=== PATIENT | female | born 1985 | race Caucasian/White ===

== ENCOUNTER → 2021-11-22 16:03 | Outpatient (BNVA) | payer BC, SELFPAY | PROVIDERS: PCP Internal Medicine; Visit Provider Psychiatry & Neurology Neurology | DX: G43.109 Migraine with aura, not intractable, without status migrainosus (principal) | CPT/HCPCS: 64615; J0585 ==

== ENCOUNTER → 2022-03-02 11:15 | Outpatient (BNVA) | payer BC, SELFPAY | PROVIDERS: Visit Provider Psychiatry & Neurology Neurology | DX: G43.109 Migraine with aura, not intractable, without status migrainosus (principal) | CPT/HCPCS: 64615; J0585 ==

== ENCOUNTER → 2022-06-19 11:30 | Outpatient (BNVA) | payer BC, SELFPAY | PROVIDERS: PCP Internal Medicine; Visit Provider Psychiatry & Neurology Neurology | DX: G43.109 Migraine with aura, not intractable, without status migrainosus (principal) | CPT/HCPCS: 64615; J0585 ==

== ENCOUNTER → 2022-09-27 08:05 | Outpatient (BNVA) | payer BC, SELFPAY | PROVIDERS: PCP Internal Medicine; Visit Provider Psychiatry & Neurology Neurology | DX: G43.119 Migraine with aura, intractable, without status migrainosus (principal) | CPT/HCPCS: 64615; J0585 ==

== ENCOUNTER → 2023-01-04 07:37 | Outpatient (BNVA) | payer BC, SELFPAY | PROVIDERS: PCP Internal Medicine; Visit Provider Psychiatry & Neurology Neurology | DX: G43.109 Migraine with aura, not intractable, without status migrainosus (principal); G43.119 Migraine with aura, intractable, without status migrainosus | CPT/HCPCS: 64615; J0585 ==

== ENCOUNTER 2023-04-16 08:31 | Outpatient (AMB) | payer BC, SELFPAY ==
--- NOTE | 2023-04-16 08:35 | A.OFFVIS_ITS ---
Intake Vital Signs 04/16/23 08:37 Weight 177 lb BP 124/64 Blood Pressure Location Lt brachial Position Sitting Pulse 70 Pulse Source Pulse Oximeter Pulse Oximetry (%) 98 Oxygen Delivery Method Room Air Intake Visit Reasons: Botox(pharm)-CONFIRMED Intake Note: BotoxInjectio Designer And Patternmaker Required: No Allergies Sulfa (Sulfonamide Antibiotics) Allergy (Mild, Verified 04/16/23 08:36) unknown sulfamethoxazole [From Bactrim] Allergy (Mild, Verified 04/16/23 08:36) unknown trimethoprim [From Bactrim] Allergy (Mild, Verified 04/16/23 08:36) unknown Medication List - Last Reconciled 04/16/23 by Melinda Robledo MD adalimumab (Humira(CF) Pen) 40 mg subcut Q2W lorazepam 1 mg PO DAILY PRN onabotulinumtoxinA (Botox) to be injected by physician in the scalp muscles for migraines q 3mths; quetiapine 25 mg PO BEDTIME sertraline 100 mg PO QAM HPI HPI Comments History of Present Illness Details ? 38y/o female comes for treatment of migraines with botox. SHe started having daily migraines in 2012 with poor response to multiple treatment trials . she was started on Botox and since then her headache days have decreased from 20days a month to 0-2 days a month. her headaches respond to excedrin and she is able to function without any interruptions at work. ??? Most frequent reported adverse reactions following injection of botox for chronic migraine include neck pain (9%), headache(5%), eyelid ptosis(4%), migraine(4%), muscular weakness(4%), musculuskeletal stiffness(4%), bronchitis(3%), injection site pain (3%), musculoskeletal pain(3%), myalgia(3%), facial ??? Botulinum toxin typeA 200units Lot no [id number] expiration Oct 2025 was d iluted with 4 cc of normal saline . ??? Muscles injected- ??? Frontalis 4 sites ??? Procerus 1 site ??? Pot Fireman- 2 sites ??? Temporalis- 8 sites ??? Occipitalis- 6 sites ??? Cervical paraspinals- 4 sites ??? Trapezius- 6 sites- 10 units each ??? 5 units each in 31 site ??? Total use- 185units ??? 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 Physical Exam Vital Signs: Last Vital Signs Pulse 70 04/16/23 08:37 BP 124/64 04/16/23 08:37 Pulse Ox 98 04/16/23 08:37 Oxygen Delivery Method Room Air 04/16/23 08:37 Const General: cooperative and healthy appearing Orientation/consciousness: patient oriented x3 HEENT Head: Yes normal to inspection and Yes normocephalic Neuro General: patient oriented x3, gait normal, tone normal and moves all extremities Office Procedures Botulinum toxin Injection 98834 - Migraine Procedure code (CPT) selection complete Office Meds onabotulinumtoxinA Performing Provider: Melinda Robledo MD Administered by: Melinda Robledo MD on 04/16/23 09:01 Dose Route Admin Location Lot Number Expiration Date NDC Utility Operator 185 unit subcut [id number] 10/24/25 4535-0191-56 ALLERGAN/BOTOX Comments: see hpi Assessment & Plan Assessment & Plan (1) Chronic migraine without aura: Code(s): G43.709 - Chronic migraine without aura, not intractable, without status migrainosus Plan Patient tolerated the procedure well she will call with any side effects. Orders: Orders AMB Botulinum toxin Injection - Patient Supplied Today G43.709 - Chronic migraine without aura, not intractable, without status migrainosus Coding Level of Care Code Est Pt Level 1 (92390) Diagnoses Chronic migraine without aura G43.709 CPT Codes Botox Injection - Botox 3: 27265 - Migraine ([id number])
[2023-04-16 08:37] VITALS: BP 124/64; PULSE 70; O2SAT 98
== END 2023-04-16 08:56 | disposition home or self-care (01) ==
PROVIDERS: Visit Provider Psychiatry & Neurology Neurology
DX: G43.709 Chronic migraine without aura, not intractable, without status migrainosus (principal)
CPT/HCPCS: 64615; 99211

== ENCOUNTER → 2023-04-16 08:31 | Outpatient (BNVA) | payer BC, SELFPAY | PROVIDERS: Visit Provider Psychiatry & Neurology Neurology | DX: G43.709 Chronic migraine without aura, not intractable, without status migrainosus (principal) | CPT/HCPCS: 64615; J0585 ==

== ENCOUNTER 2023-07-17 08:06 | Outpatient (AMB) | payer BC, SELFPAY ==
--- NOTE | 2023-07-17 08:11 | A.OFFVIS_ITS ---
Intake Vital Signs 07/17/23 08:12 Height 5 ft 8 in Weight 174 lb 8 oz BMI 26.5 BP 108/66 Blood Pressure Location Lt brachial Position Sitting Respiration 16 Pulse 68 Pulse Source Pulse Oximeter Pulse Oximetry (%) 96 Oxygen Delivery Method Room Air Intake Visit Reasons: Botox(pharm)-confirmed Intake Note: Pt presents to office for Botox injections Allergies Sulfa (Sulfonamide Antibiotics) Allergy (Mild, Verified 07/17/23 08:11) unknown sulfamethoxazole [From Bactrim] Allergy (Mild, Verified 07/17/23 08:11) unknown trimethoprim [From Bactrim] Allergy (Mild, Verified 07/17/23 08:11) unknown Medication List - Last Reconciled 07/17/23 by Melinda Robledo MD etanercept (Enbrel) 25 mg subcut QWEEK lorazepam 1 mg PO DAILY PRN onabotulinumtoxinA (Botox) to be injected by physician in the scalp muscles for migraines q 3mths; quetiapine 25 mg PO BEDTIME sertraline 100 mg PO QAM HPI HPI Comments History of Present Illness Details ? 38y/o female comes for treatment of migraines with botox. SHe started having daily migraines in 2012 with poor response to multiple treatment trials . she was started on Botox and since then her headache days have decreased from 20days a month to 0-2 days a month. her headaches respond to excedrin and she is able to function without any interruptions at work. ??? Most frequent reported adverse reactions following injection of botox for ch ronic migraine include neck pain (9%), headache(5%), eyelid ptosis(4%), migraine(4%), muscular weakness(4%), musculuskeletal stiffness(4%), bronchitis(3%), injection site pain (3%), musculoskeletal pain(3%), myalgia(3%), facial ??? Botulinum toxin typeA 200units Lot no [id number] expiration November 2025 was diluted with 4 cc of normal saline . ??? Muscles injected- ??? Frontalis 4 sites ??? Procerus 1 site ??? Tapping Machine Operator- 2 sites ??? Temporalis- 8 sites ??? Occipitalis- 6 sites ??? Cervical paraspinals- 4 sites ??? Trapezius- 6 sites- 10 units each ??? 5 units each in 31 site ??? Total use- 185units ??? 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 Physical Exam Vital Signs: Last Vital Signs Pulse 68 07/17/23 08:12 Resp 16 07/17/23 08:12 BP 108/66 07/17/23 08:12 Pulse Ox 96 07/17/23 08:12 Oxygen Delivery Method Room Air 07/17/23 08:12 BMI result Body Mass Index 26.5 Const General: cooperative and healthy appearing Orientation/consciousness: patient oriented x3 HEENT Head: Yes normal to inspection and Yes normocephalic Neuro General: patient oriented x3, gait normal, tone normal and moves all extremities Office Procedures Botulinum toxin Injection 04359 - Migraine Procedure code (CPT) selection complete Office Meds onabotulinumtoxinA 200 unit solution for injection Performing Provider: Melinda Robledo MD Performing Location[place] [facility] [place] [facility] Administered by: Melinda Robledo MD on 07/17/23 10:44 Dose Route Admin Location Dispensed Lot Number Expiration Date [facility] Environmental Remediation Specialist 185 unit subcut 200 units [id number] 11/21/25 1052-0216-02 ALLERGAN/BOTOX Comments: see HPI Assessment & Plan Assessment & Plan (1) Chronic migraine without aura: Code(s): G43.709 - Chronic migraine without aura, not intractable, without status migrainosus Plan Patient tolerated the procedure well she will call with any side effects. Orders: Orders PT Evaluation and Treatment Today M54.2 - Cervicalgia AMB Botulinum toxin Injection - Patient Supplied Today G43.709 - Chronic migraine without aura, not intractable, without status migrainosus Coding Level of Care Code Est Pt Level 1 (33784) Diagnoses Chronic migraine without aura G43.709 CPT Codes Botox Injection - Botox 3: 73852 - Migraine ([id number])
[2023-07-17 08:12] VITALS: BP 108/66; PULSE 68; RESP 16; O2SAT 96; BMI 26.5
== END 2023-07-17 08:37 | disposition home or self-care (01) ==
PROVIDERS: PCP Internal Medicine; Visit Provider Psychiatry & Neurology Neurology
DX: G43.709 Chronic migraine without aura, not intractable, without status migrainosus (principal)
CPT/HCPCS: 64615

== ENCOUNTER → 2023-07-17 08:06 | Outpatient (BNVA) | payer BC, SELFPAY | PROVIDERS: PCP Internal Medicine; Visit Provider Psychiatry & Neurology Neurology | DX: G43.709 Chronic migraine without aura, not intractable, without status migrainosus (principal) | CPT/HCPCS: 64615; 99211; J0585 ==

== ENCOUNTER 2023-10-21 08:06 | Outpatient (AMB) | payer BC, SELFPAY ==
--- NOTE | 2023-10-21 08:10 | A.OFFVIS_ITS ---
Intake Vital Signs 10/21/23 08:11 Height 5 ft 8 in Weight 185 lb 4 oz BMI 28.2 BP 116/70 Blood Pressure Location Rt brachial Position Sitting Respiration 16 Pulse 72 Pulse Source Pulse Oximeter Pulse Oximetry (%) 97 Oxygen Delivery Method Room Air Intake Visit Reasons: Botox(pharm) Confirmed Intake Note: Pt presents to the office for Botox injections. Refinish Technician Required: No Allergies Sulfa (Sulfonamide Antibiotics) Allergy (Mild, Verified 10/21/23 08:11) unknown sulfamethoxazole [From Bactrim] Allergy (Mild, Verified 10/21/23 08:11) unknown trimethoprim [From Bactrim] Allergy (Mild, Verified 10/21/23 08:11) unknown Medication List - Last Reconciled 10/21/23 by Melinda Robledo MD lorazepam 1 mg PO DAILY PRN onabotulinumtoxinA (Botox) to be injected by physician in the scalp muscles for migraines q 3mths; quetiapine 25 mg PO BEDTIME sertraline 100 mg PO QAM HPI HPI Comments History of Present Illness Details ? 38y/o female comes for treatment of migraines with botox. How many migraine days prior to botox 20-25days per month How long do the migraines last- 1-2 days Intensity of migraine- 07/02 ER visits related to migraine- 1-2 Effectiveness of botox from last two treatment(s) How many migraine days since receiving treatment: 2-3/month Change? in intensity of migraine?decreased Change in frequency of migraine?decreased Change in use of acute medication for migraine?decreased Change in quality of life?better ER visits related to migraine?none Have at least three months elapsed since last treatment (Last botox date - frequency of injections) ??? Most frequent reported adverse reactions following injection of botox for chronic migraine include neck pain (9%), headache(5%), eyelid ptosis(4%), migraine(4%), muscular weakness(4%), musculuskeletal stiffness(4%), bronchitis(3%), injection site pain (3%), musculoskeletal pain(3%), myalgia(3%), facial ??? Botulinum toxin typeA 200units Lot no [id number] expiration February 2026 was diluted with 4 cc of normal saline . ??? Muscles injected- ??? Frontalis 4 sites ??? Procerus 1 site ??? Sustainable Agriculture Faculty- 2 sites ??? Temporalis- 8 sites ??? Occipitalis- 6 sites ??? Cervical paraspinals- 4 sites ??? Trapezius- 6 sites- 10 units each ??? 5 units each in 31 site ??? Total use- 185units ??? 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 Physical Exam Vital Signs: Last Vital Signs Pulse 72 10/21/23 08:11 Resp 16 10/21/23 08:11 BP 116/70 10/21/23 08:11 Pulse Ox 97 10/21/23 08:11 Oxygen Delivery Method Room Air 10/21/23 08:11 BMI result Body Mass Index 28.2 Const General: cooperative and healthy appearing Orientation/consciousness: patient oriented x3 HEENT Head: Yes normal to inspection and Yes normocephalic Neuro General: patient oriented x3, gait normal, tone normal and moves all extremities Office Procedures Botulinum toxin Injection 08764 - Migraine Procedure code (CPT) selection complete Office Meds onabotulinumtoxinA 200 unit solution for injection Performing Provider: Melinda Robledo MD Performing Location: [facility] [place] [facility] Administered by: Melinda Robledo MD on 10/21/23 10:35 Dose Route Admin Location Dispensed Lot Number Expiration Date [facility] Hybrid Powertrain Development Engineer 185 unit subcut 200 units [id number] 02/21/26 5016-5658-43 ALLERGAN/BOTOX Assessment & Plan Assessment & Plan (1) Chronic migraine without aura: Code(s): G43.709 - Chronic migraine without aura, not intractable, without status migrainosus Plan Patient tolerated the procedure well she will call with any side effects. Orders: Orders AMB Botulinum toxin Injection Today G43.709 - Chronic migraine without aura, not intractable, without status migrainosus PT Evaluation and Treatment Today M54.2 - Cervicalgia Coding Level of Care Code Est Pt Level 1 (77692) Diagnoses Chronic migraine without aura G43.709 CPT Codes Botox Injection - Botox 3: 39227 - Migraine ([id number])
[2023-10-21 08:11] VITALS: BP 116/70; PULSE 72; RESP 16; O2SAT 97; BMI 28.2
== END 2023-10-21 08:37 | disposition home or self-care (01) ==
PROVIDERS: PCP Internal Medicine; Visit Provider Psychiatry & Neurology Neurology
DX: G43.709 Chronic migraine without aura, not intractable, without status migrainosus (principal)
CPT/HCPCS: 64615

== ENCOUNTER → 2023-10-21 08:06 | Outpatient (BNVA) | payer BC, SELFPAY | PROVIDERS: PCP Internal Medicine; Visit Provider Psychiatry & Neurology Neurology | DX: G43.709 Chronic migraine without aura, not intractable, without status migrainosus (principal) | CPT/HCPCS: 64615; 99211; J0585 ==

== ENCOUNTER 2024-01-21 08:04 | Outpatient (AMB) | payer OTHER, SELFPAY ==
[2024-01-21 08:08] VITALS: BP 122/70; PULSE 63; RESP 16; O2SAT 97; BMI 28.1
--- NOTE | 2024-01-21 08:08 | MHC.OFFVIS ---
Vital Signs 01/21/24 08:08 Height 5 ft 8 in Weight 185 lb BMI 28.1 BP 122/70 Blood Pressure Location Rt brachial Position Sitting Respiration 16 Pulse 63 Pulse Source Pulse Oximeter Pulse Oximetry (%) 97 Oxygen Delivery Method Room Air Intake Visit Reasons: Botox (Pharm)-LVM Intake Note: Pt presents to the office for Botox injections. Hose Builder Required: No Allergies Sulfa (Sulfonamide Antibiotics) Allergy (Mild, Verified 01/21/24 08:08) unknown sulfamethoxazole [From Bactrim] Allergy (Mild, Verified 01/21/24 08:08) unknown trimethoprim [From Bactrim] Allergy (Mild, Verified 01/21/24 08:08) unknown Medication List - Last Reconciled 01/21/24 by Melinda Robledo MD lznuiwozbw-jcmvknngxasnk-fnfx 50-300-40 mg (Fioricet) 2 caps at onset then 1 cap q 4 hrs maximum 6 caps/day orally every 4 to 6 hours PRN; do not exceed 6 caps per day cyclobenzaprine 5 mg PO BEDTIME PRN lorazepam 1 mg PO DAILY PRN onabotulinumtoxinA (Botox) to be injected by physician in the scalp muscles for migraines q 3mths; quetiapine 25 mg PO BEDTIME sertraline 100 mg PO QAM HPI Comments Details: ? 39y/o female comes for treatment of migraines with botox. How many migraine days prior to botox 20-25days per month How long do the migraines last- 1-2 days Intensity of migraine- 07/02 ER visits related to migraine- 1-2 Effectiveness of botox from last two treatment(s) How many migraine days since receiving treatment: 2-3/month Change? in intensity of migraine?decreased Change in frequency of migraine?decreased Change in use of acute medication for migraine?decreased Change in quality of life?better ER visits related to migraine?none Have at least three months elapsed since last treatment (Last botox date - frequency of injections)10/21/23 ??? Most frequent reported adverse reactions following injection of botox for chronic migraine include neck pain (9%), headache(5%), eyelid ptosis(4%), migraine(4%), muscular weakness(4%), musculuskeletal stiffness(4%), bronchitis(3%), injection site pain (3%), musculoskeletal pain(3%), myalgia(3%), facial ??? Botulinum toxin typeA 200units Lot no [id number] expiration February 2026 was diluted with 4 cc of normal saline . ??? Muscles injected- ??? Frontalis 4 sites ??? Procerus 1 site ??? Appeals Writer- 2 sites ??? Temporalis- 8 sites ??? Occipitalis- 6 sites ??? Cervical paraspinals- 4 sites ??? Trapezius- 6 sites- 10 units each ??? 5 units each in 31 site ??? Total use- 185units ??? 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 Physical Exam Vital Signs: Last Vital Signs Pulse 63 01/21/24 08:08 Resp 16 01/21/24 08:08 BP 122/70 01/21/24 08:08 Pulse Ox 97 01/21/24 08:08 Oxygen Delivery Method Room Air 01/21/24 08:08 BMI result Body Mass Index 28.1 Const General: cooperative and healthy appearing Orientation/consciousness: patient oriented x3 HEENT Head: Yes normal to inspection and Yes normocephalic Neuro General: patient oriented x3, gait normal, tone normal and moves all extremities Office Procedures Botulinum toxin Injection 92407 - Migraine Procedure code (CPT) selection complete Office Meds onabotulinumtoxinA 200 unit solution for injection Performing Provider: Melinda Robledo MD Performing Location: [facility] Administered by: Melinda Robledo MD on 01/21/24 08:45 Dose Route Admin Location Dispensed Lot Number Expiration Date [facility] Physician Compensation Analyst 185 unit subcut 200 units [id number] 02/21/26 9389-0794-06 ALLERGAN/BOTOX Comments: see hpi Assessment & Plan Assessment & Plan (1) Chronic migraine without aura: Category: Medical Plan Patient tolerated the procedure well she will call with any side effects. Orders: Orders PT Evaluation and Treatment Today M54.2 - Cervicalgia AMB Botulinum toxin Injection Today G43.709 - Chronic migraine without aura, not intractable, without status migrainosus Medications: New onabotulinumtoxinA 200 units subcut ONCE 1 ea 0RF migraine G43.709 - Chronic migraine without aura, not intractable, without status migrainosus cyclobenzaprine 5 mg PO BEDTIME PRN 30 tabs 2RF muscle spasm Refilled ucmvlbasbq-hyyrswsvvhwym-dbzj 50-300-40 mg (Fioricet) 2 caps at onset then 1 cap q 4 hrs maximum 6 caps/day orally every 4 to 6 hours PRN; do not exceed 6 caps per day 20 caps 0RF pain Coding Level of Care Code Est Pt Level 1 (21968) Diagnoses Chronic migraine without aura G43.709 CPT Codes Botox Injection - Botox 3: 54501 - Migraine ([id number])
== END 2024-01-21 08:42 | disposition home or self-care (01) ==
PROVIDERS: PCP Internal Medicine; Visit Provider Psychiatry & Neurology Neurology
DX: G43.709 Chronic migraine without aura, not intractable, without status migrainosus (principal)
CPT/HCPCS: 64615

== ENCOUNTER → 2024-01-21 08:04 | Outpatient (BNVA) | payer OTHER, SELFPAY | PROVIDERS: PCP Internal Medicine; Visit Provider Psychiatry & Neurology Neurology | DX: G43.709 Chronic migraine without aura, not intractable, without status migrainosus (principal) | CPT/HCPCS: 64615; 99211; J0585 ==

== ENCOUNTER 2024-04-21 09:03 | Outpatient (AMB) | payer OTHER, SELFPAY ==
--- NOTE | 2024-04-21 09:07 | A.OFFVIS_ITS ---
Vital Signs 04/21/24 09:09 Height 5 ft 8 in Weight 185 lb BMI 28.1 BP 102/70 Blood Pressure Location Rt brachial Position Sitting Respiration 16 Pulse 64 Pulse Source Palpation Intake Visit Reasons: Botox-CONF Intake Note: Pt presents for Botox injections for Migraines. Senior Applications Analyst Required: No Allergies Sulfa (Sulfonamide Antibiotics) Allergy (Mild, Verified 04/21/24 09:08) unknown sulfamethoxazole [From Bactrim] Allergy (Mild, Verified 04/21/24 09:08) unknown trimethoprim [From Bactrim] Allergy (Mild, Verified 04/21/24 09:08) unknown Medication List - Last Reconciled 04/21/24 by Melinda Robledo MD ozejitcfle-vovfexcncctsn-xxvu 50-300-40 mg (Fioricet) 2 caps at onset then 1 cap q 4 hrs maximum 6 caps/day orally every 4 to 6 hours PRN; do not exceed 6 caps per day cyclobenzaprine 5 mg PO BEDTIME PRN lorazepam 1 mg PO DAILY PRN onabotulinumtoxinA (Botox) to be injected by physician in the scalp muscles for migraines q 3mths; quetiapine 25 mg PO BEDTIME sertraline 100 mg PO QAM HPI Comments Details: ? 39y/o female comes for treatment of migraines with botox. How many migraine days prior to botox 20-25days per month How long do the migraines last- 1-2 days Intensity of migraine- 07/02 ER visits related to migraine- 1-2 Effectiveness of botox from last two treatment(s) How many migraine days since receiving treatment: 2-3/month Change? in intensity of migraine?decreased Change in frequency of migraine?decreased Change in use of acute medication for migraine?decreased Change in quality of life?better ER visits related to migraine?none Have at least three months elapsed since last treatment (Last botox date - frequency of injections)01/14 ??? Most frequent reported adverse reactions following injection of botox for chronic migraine include neck pain (9%), headache(5%), eyelid ptosis(4%), migraine(4%), muscular weakness(4%), musculuskeletal stiffness(4%), bronchitis(3%), injection site pain (3%), musculoskeletal pain(3%), myalgia(3%), facial ??? Botulinum toxin typeA 200units Lot no [id number] expiration Aug 2026 was diluted with 4 cc of normal saline . ??? Muscles injected- ??? Frontalis 4 sites ??? Procerus 1 site ??? Clinical Geneticist- 2 sites ??? Temporalis- 8 sites ??? Occipitalis- 8 sites ??? Cervical paraspinals- 4 sites ??? Trapezius- 6 sites- 10 units each ??? 5 units each in 31 site ??? Total use- 195units ??? 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 Physical Exam Vital Signs: Last Vital Signs Pulse 64 04/21/24 09:09 Resp 16 04/21/24 09:09 BP 102/70 04/21/24 09:09 BMI result Body Mass Index 28.1 Const General: cooperative and healthy appearing Orientation/consciousness: patient oriented x3 HEENT Head: Yes normal to inspection and Yes normocephalic Neuro General: patient oriented x3, gait normal, tone normal and moves all extremities Office Procedures Botulinum toxin Injection 19766 - Migraine Procedure code (CPT) selection complete Office Meds onabotulinumtoxinA 200 unit solution for injection Performing Provider: Melinda Robledo MD Performing Location: [facility] [place] [facility] Administered by: Melinda Robledo MD on 04/21/24 09:48 Dose Route Admin Location Dispensed Lot Number Expiration Date [facility] Degree Clerk 195 unit IM 200 units [id number] 08/23/26 8888-8917-26 ALLERGAN/BOTOX Comments: see hpi Assessment & Plan Assessment & Plan (1) Chronic migraine without aura: Code(s): G43.709 - Chronic migraine without aura, not intractable, without status migrainosus Category: Medical (2) Chronic migraine without aura, intractable, without status migrainosus: Code(s): G43.719 - Chronic migraine without aura, intractable, without status migrainosus Category: Medical Plan Patient tolerated the procedure well she will call with any side effects. Orders: Orders AMB Botulinum toxin Injection Today G43.719 - Chronic migraine without aura, intractable, without status migrainosus Medications: New onabotulinumtoxinA 200 units IM ONCE 1 ea 0RF Migraine G43.719 - Chronic migraine without aura, intractable, without status migrainosus Coding Level of Care Code Est Pt Level 1 (60246) Diagnoses Chronic migraine without aura G43.709 Chronic migraine without aura, intractable, without status migrainosus G43.719 CPT Codes Botox Injection - Botox 3: 84803 - Migraine ([id number])
[2024-04-21 09:09] VITALS: BP 102/70; PULSE 64; RESP 16; BMI 28.1
== END 2024-04-21 09:36 | disposition home or self-care (01) ==
PROVIDERS: PCP Internal Medicine; Visit Provider Psychiatry & Neurology Neurology
DX: G43.719 Chronic migraine without aura, intractable, without status migrainosus (principal)
CPT/HCPCS: 64615

== ENCOUNTER → 2024-04-21 09:03 | Outpatient (BNVA) | payer OTHER, SELFPAY | PROVIDERS: PCP Internal Medicine; Visit Provider Psychiatry & Neurology Neurology | DX: G43.709 Chronic migraine without aura, not intractable, without status migrainosus (principal); G43.719 Chronic migraine without aura, intractable, without status migrainosus | CPT/HCPCS: 64615; 99211; J0585 ==

== ENCOUNTER 2024-07-27 15:00 | Outpatient (AMB) | payer OTHER, SELFPAY ==
[2024-07-27 15:04] VITALS: BMI 28.1
--- NOTE | 2024-07-27 15:04 | A.OFFVIS_ITS ---
Vital Signs 07/27/24 15:04 Height 5 ft 8 in Weight 185 lb BMI 28.1 Intake Visit Reasons: Botox Intake Note: Patient presents for Botox injection Allergies Sulfa (Sulfonamide Antibiotics) Allergy (Mild, Verified 07/27/24 15:07) unknown sulfamethoxazole [From Bactrim] Allergy (Mild, Verified 07/27/24 15:07) unknown trimethoprim [From Bactrim] Allergy (Mild, Verified 07/27/24 15:07) unknown Medication List - Last Reconciled 07/27/24 by Melinda Robledo MD unqrvvhcfe-fckvfatlpjhvd-mnmv 50-300-40 mg (Fioricet) 2 caps at onset then 1 cap q 4 hrs maximum 6 caps/day orally every 4 to 6 hours PRN; do not exceed 6 caps per day cyclobenzaprine 5 mg PO BEDTIME PRN lorazepam 1 mg PO DAILY PRN onabotulinumtoxinA (Botox) to be injected by physician in the scalp muscles for migraines q 3mths; quetiapine 25 mg PO BEDTIME sertraline 100 mg PO QAM HPI Comments Details: ? 39y/o female comes for treatment of migraines with botox. How many migraine days prior to botox 20-25days per month How long do the migraines last- 1-2 days Intensity of migraine- 07/02 ER visits related to migraine- 1-2 Effectiveness of botox from last two treatment(s) How many migraine days since receiving treatment: 2-3/month Change? in intensity of migraine?decreased Change in frequency of migraine?decreased Change in use of acute medication for migraine?decreased Change in quality of life?better ER visits related to migraine?none Have at least three months elapsed since last treatment (Last botox date - frequency of injections)04/15 ??? Most frequent reported adverse reactions following injection of botox for chronic migraine include neck pain (9%), headache(5%), eyelid ptosis(4%), migraine(4%), muscular weakness(4%), musculuskeletal stiffness(4%), bronchitis(3%), injection site pain (3%), musculoskeletal pain(3%), myalgia(3%), facial ??? Botulinum toxin typeA 200units Lot no [id number] expiration Oct 2026 was diluted with 4 cc of normal saline . ??? Muscles injected- ??? Frontalis 4 sites ??? Procerus 1 site ??? Car Detailer- 2 sites ??? Temporalis- 8 sites ??? Occipitalis- 8 sites ??? Cervical paraspinals- 4 sites ??? Trapezius- 6 sites- 10 units each ??? 5 units each in 31 site ??? Total use- 185units ??? 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 Physical Exam Vital Signs: BMI result Body Mass Index 28.1 Const General: cooperative and healthy appearing Orientation/consciousness: patient oriented x3 HEENT Head: Yes normal to inspection and Yes normocephalic Neuro General: patient oriented x3, gait normal, tone normal and moves all extremities Office Procedures Botulinum toxin Injection 57205 - Migraine Procedure code (CPT) selection complete Office Meds onabotulinumtoxinA 200 unit solution for injection Performing Provider: Melinda Robledo MD Performing Location: [facility] Administered by: Melinda Robledo MD on 07/27/24 15:25 Dose Route Admin Location Dispensed Lot Number Expiration Date [facility] Cigarette Lighter Repairer 185 unit subcut 200 units [id number] 10/24/26 2912-8544-85 ALLERGAN/BOTOX Comments: see HPI Assessment & Plan Assessment & Plan (1) Chronic migraine without aura: Code(s): G43.709 - Chronic migraine without aura, not intractable, without status migrainosus Category: Medical Qualifiers: Status migrainosus presence: without status migrainosus Intractability: intractable Qualified Code(s): G43.719 - Chronic migraine without aura, intractable, without status migrainosus (2) Chronic migraine without aura, intractable, without status migrainosus: Code(s): G43.719 - Chronic migraine without aura, intractable, without status migrainosus Category: Medical Plan Patient tolerated the procedure well she will call with any side effects. Orders: Orders AMB Botulinum toxin Injection Today G43.719 - Chronic migraine without aura, intractable, without status migrainosus Medications: New onabotulinumtoxinA 200 units subcut ONCE 1 ea 0RF Migraine G43.719 - Chronic migraine without aura, intractable, without status migrainosus Coding Level of Care Code Est Pt Level 1 (35355) Diagnoses Intractable chronic migraine without aura and without status migrainosus G43.719 Status migrainosus presence: without status migrainosus Intractability: intractable Chronic migraine without aura, intractable, without status migrainosus G43.719 CPT Codes Botox Injection - Botox 3: 74760 - Migraine ([id number])
== END 2024-07-27 15:27 | disposition home or self-care (01) ==
LOC: HO.HSMS 15:00
PROVIDERS: PCP Internal Medicine; Visit Provider Psychiatry & Neurology Neurology
DX: G43.719 Chronic migraine without aura, intractable, without status migrainosus (principal)
CPT/HCPCS: 64615

== ENCOUNTER → 2024-07-27 15:00 | Outpatient (BNVA) | payer OTHER, SELFPAY | PROVIDERS: PCP Internal Medicine; Visit Provider Psychiatry & Neurology Neurology | DX: G43.719 Chronic migraine without aura, intractable, without status migrainosus (principal) | CPT/HCPCS: 64615; 99211; J0585 ==

== ENCOUNTER 2024-10-20 12:59 | Outpatient (AMB) | payer OTHER, SELFPAY ==
--- NOTE | 2024-10-20 13:06 | MHC.OFFVIS ---
Vital Signs 10/20/24 13:06 Height 5 ft 8 in Intake Visit Reasons: Botox Intake Note: Patient presents for botox injection Allergies Sulfa (Sulfonamide Antibiotics) Allergy (Mild, Verified 07/27/24 15:07) unknown sulfamethoxazole [From Bactrim] Allergy (Mild, Verified 07/27/24 15:07) unknown trimethoprim [From Bactrim] Allergy (Mild, Verified 07/27/24 15:07) unknown Medication List - Last Reconciled 10/20/24 by Melinda Robledo MD dqbkjmzzno-abyromvwcroto-dnmn 50-300-40 mg (Fioricet) 2 caps at onset then 1 cap q 4 hrs maximum 6 caps/day orally every 4 to 6 hours PRN; do not exceed 6 caps per day cyclobenzaprine 5 mg PO BEDTIME PRN lorazepam 1 mg PO DAILY PRN onabotulinumtoxinA (Botox) to be injected by physician in the scalp muscles for migraines q 3mths; quetiapine 25 mg PO BEDTIME sertraline 100 mg PO QAM HPI Comments Details: ? 39y/o female comes for treatment of migraines with botox. How many migraine days prior to botox 20-25days per month How long do the migraines last- 1-2 days Intensity of migraine- 07/02 ER visits related to migraine- 1-2 Effectiveness of botox from last two treatment(s) How many migraine days since receiving treatment: 2-3/month Change? in intensity of migraine?decreased Change in frequency of migraine?decreased Change in use of acute medication for migraine?decreased Change in quality of life?better ER visits related to migraine?none Have at least three months elapsed since last treatment (Last botox date - frequency of injections)04/15 ??? Most frequent reported adverse reactions following injection of botox for chronic migraine include neck pain (9%), headache(5%), eyelid ptosis(4%), migraine(4%), muscular weakness(4%), musculuskeletal stiffness(4%), bronchitis(3%), injection site pain (3%), musculoskeletal pain(3%), myalgia(3%), facial ??? Botulinum toxin typeA 200units Lot no [id number] expiration May 2026 was diluted with 4 cc of normal saline . ??? Muscles injected- ??? Frontalis 4 sites ??? Procerus 1 site ??? Well Logging Captain Mud Analysis- 2 sites ??? Temporalis- 8 sites ??? Occipitalis- 8 sites ??? Cervical paraspinals- 4 sites ??? Trapezius- 6 sites- 10 units each ??? 5 units each in 31 site ??? Total use- 185units ??? 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 Physical Exam Const General: cooperative and healthy appearing Orientation/consciousness: patient oriented x3 HEENT Head: Yes normal to inspection and Yes normocephalic Neuro General: patient oriented x3, gait normal, tone normal and moves all extremities Office Procedures Botulinum toxin Injection 12270 - Migraine Procedure code (CPT) selection complete Office Meds onabotulinumtoxinA 200 unit solution for injection Performing Provider: Melinda Robledo MD Performing Location: [facility] [place] [facility] Administered by: Melinda Robledo MD on 10/20/24 13:47 Dose Route Admin Location Dispensed Lot Number Expiration Date [facility] Life [employer] 185 unit IM 200 units [id number] ALLERGAN/BOTOX Comments: see hpi Assessment & Plan Assessment & Plan (1) Chronic migraine without aura: Code(s): G43.709 - Chronic migraine without aura, not intractable, without status migrainosus Category: Medical (2) Chronic migraine without aura, intractable, without status migrainosus: Code(s): G43.719 - Chronic migraine without aura, intractable, without status migrainosus Category: Medical Plan Patient tolerated the procedure well she will call with any side effects. Orders: Orders AMB Botulinum toxin Injection Today G43.719 - Chronic migraine without aura, intractable, without status migrainosus Medications: New onabotulinumtoxinA 200 units IM ONCE 1 ea 0RF migraine G43.719 - Chronic migraine without aura, intractable, without status migrainosus Coding Level of Care Code Est Pt Level 1 (08814) Diagnoses Chronic migraine without aura G43.709 Chronic migraine without aura, intractable, without status migrainosus G43.719 CPT Codes Botox Injection - Botox 3: 45976 - Migraine ([id number])
--- OUTSIDE RECORDS SUMMARY | 2024-10-20 13:53 | XMS_ITS | Clinical Summary ---
Author Organization [facility] [address] Address [address] [place] [address] Phone Care Team Providers Care Limousine Rental Clerk Name Role Phone Chiqui Santamaria MD Primary Care Provider [phone] Encounters Date Type Department Care Team Description 10/19/2024 Telephone Gastroenterology - [address] [phone] Honorio Cates MD from Last 3 Months Social History Tobacco Use Types Packs/Day Years Used Date Smoking Tobacco: Never Assessed Sex and Gender Information Value Date Recorded Sex Assigned at Female 10/19/2024 1:18 PM EST Gender Identity Female 10/19/2024 1:18 PM EST Sexual Orientation Straight 10/19/2024 1: 18 PM EST Job Start Date Occupation Industry Not on file Not on file Not on file Plan of Treatment Upcoming Encounters Date Type Department Care Team ([facility] Contact Info) Description 10/26/2024 3:20 PM EST Office Visit Gastroenterology - [address] [phone] Pema Palacios, WOMEN NURSE [address] [phone] Health Maintenance Due Date Last Done Comments DTaP,Tdap,and Td Vaccines (1 - Tdap) 2006 Hepatitis B Vaccines (1 of 3 - 19+ 3-dose series) 2006 Cervical Cancer Screening: P ap Smear 01/20/2008 Depression Screening 10/18/2023 HIV Screening 10/18/2023 Hepatitis C Screening 10/18/2023 Social Influencers of Health Screening 10/18/2023 COVID-19 Vaccine ( - 2023-2 5 season) 2024 Influenza Vaccine (#1) 2024 HIB Vaccines Aged Out No longer eligi ble based on patient's age to complete this topic HPV Vaccines Aged Out No longer eligi ble based on patient's age to complete this topic Hepatitis A Vaccines Aged Out No long er eligible based on patient's age to complete this topic IPV Vaccines Aged Out No longer eligi ble based on patient's age to complete this topic MMR Vaccines Aged Out No longer eligi ble based on patient's age to complete this topic Meningococcal ACWY Vaccine Aged Out N o longer eligible based on patient's age to complete this topic Pneumococcal Vaccine: Pediat rics (0 to 5 Years) and At-Risk Patients (6 to 64 Years) Aged Out No longer eligible b ased on patient's age to complete this topic RSV Immunization Patients Un sunil 20 months Aged Out No longer eligible b ased on patient's age to complete this topic Varicella Vaccines Aged Out No longer eligible based on patient's age to complete this topic Care Teams Limousine Rental Clerk Relationship Specialty Start Date End Date Chiqui Santamaria MD [address] [place] [address] [address] [place], [place] [phone] PCP - General Internal Medicine 10/19/24
--- OUTSIDE RECORDS SUMMARY | 2024-10-20 13:53 | XMS_ITS | Encounter Summary ---
Author Organization [facility] Address [address] [place] [address] Care Team Providers Care Regional Facilities Specialist Name Role Phone Chiqui Santamaria MD Primary Care Provider Encounter Details Date Type Department Care Team (Late st Contact Info) Description 10/19/2024 Telephone Gastroenterology - [address] [facility] [address] [place] [phone] Honorio Cates MD [address] [facility] [address] [phone] Social History Tobacco Use Types Packs/Day Years Used Date Smoking Tobacco: Never Assessed Sex and Gender Information Value Date Recorded Sex Assigned at Female 10/19/2024 1:18 PM EST Gender Identity Female 10/19/2024 1:18 PM EST Sexual Orientation Straight 10/19/2024 1: 18 PM EST Job Start Date Occupation Industry Not on file Not on file Not on file documented as of this encounter Progress Notes * Hyacinth Beckford - 10/19/2024 2:14 PM EST N/A documented in this encounter Plan of Treatment Upcoming Encounters Date Type Department Care Team (Late st Contact Info) Description 10/26/2024 3:20 PM EST Office Visit Gastroenterology - [address] [place] [phone] Pema Palacios, WOO [address] [place] [phone] documented as of this encounter Visit Diagnoses Not on filedocumented in this encounter Care Teams Regional Facilities Specialist Relationship Specialty Start Date End Date Chiqui Santamaria MD [address] [place] [phone] PCP - General Internal Medicine 10/19/24 documented as of this encounter
--- OUTSIDE RECORDS SUMMARY | 2024-10-20 13:53 | XMS_ITS | Clinical Summary ---
Author Organization [facility] Address [address] [place] [address] Care Team Providers Care Educational Aid Name Role Phone Esthela Morgan MD Primary Care Provider Allergies Active Allergy Reactions Criticality Noted Date Comments Sulfa Antibiotics 08/23/2017 [employer] Comment: Reaction Date: 23Sep1800; Medications Levonorgestrel -Ethinyl Estrad (Grass Range-28) 0.15-30 MG-MCG per tablet TAKE 1 TABLET DAILY. 0 09/05/20 17 Active Propranolol HCl (INDERAL) 40 MG tablet 1 po bid 0 09/05/20 17 Active Multiple Vitamin (Multi Vitamin) Tab TAKE 1 TABLET DAILY. 0 09/05/20 17 Active Metoclopramide HCl (REGLAN) 10 MG tablet 1 tab po for nausea associated with migraine. may repeat Q8-12 hours as needed 10 2 09/05/20 17 Active Botulinum Toxin Type A (Botox) 200 units injection INJECT 200 UNITS INTRAMUSCULARLY ONCE EVERY 12 WEEKS INTO HEAD AND NECK AREA. 200 3 02/29/20 18 Active Botulinum Toxin Type A (Botox) 200 units injection INJECT UP TO 200 UNITS INTRAMUSCULARLY INTO THE HEAD AND NECK AREAS IN MD OFFICE PER MIGRAINE PROTOCOL EVERY 10 TO 13 WEEKS 200 3 04/01/20 18 Active Botulinum Toxin Type A (Botox) 200 units injection INJECT UP TO 200 UNITS INTRAMUSCULARLY INTO THE HEAD AND NECK AREAS IN MD OFFICE PER MIGRAINE PROTOCOL EVERY 10 TO 13 WEEKS 200 3 12/04/19 19 Active Active Problems Problem Noted Date Diagnosed Date Headache 08/23/2017 Overview (10/27/2023): Onset: 02/08/2017 New daily persistent headache 08/23/2017 Overview (10/27/2023): Onset: 02/08/2017 Adjustment disorder with mixed anxiety and depre ssed mood 08/23/2017 Overview (10/27/2023): Onset: 02/08/2017 Cervicalgia 08/23/2017 Overview (10/27/2023): Onset: 02/08/2017 Chronic migraine without aur a without status migrainosus, not intractable 08/23/2017 Overview (10/27/2023): Onset: 06/27/2017 Social History Tobacco Use Types Packs/Day Years Used Date Smoking Tobacco: Never Assessed Comments Unknown Sex and Gender Information Value Date Recorded Sex Assigned at Not on file Legal Sex Female 10:29 PM EDT Gender Identity Not on file Sexual Orientation Not on file Last Filed Vital Signs Vital Sign Reading Time Taken Comments Blood Pressure 102/78 09/05/2017 4:30 PM EST Pulse 68 09/05/2017 4:30 PM EST Temperature 36.1 ??C (96.9 ??F) 04/19/2020 2:55 PM ED T Temporal Respiratory Rate 14 09/05/2017 4:30 PM EST Oxygen Saturation - - Inhaled Oxygen Concentration - - Weight 77.1 kg (170 lb) 07/21/2018 4:12 PM EDT Height 172.7 cm (5' 8 ) 07/21/2018 4:12 PM EDT Body Mass Index 25.85 07/21/2018 4:12 PM EDT Plan of Treatment Health Maintenance Due Date Last Done Comments Hepatitis C Screening 1987 Pap Smear 2003 DTaP/Tdap/Td (1 - Tdap) 2005 Hep B (1 of 3 - 19+ 3-dose series) 2006 COVID-19 Vaccine ( - 2023-2 5 season) 2024 Influenza (#1) 2024 Zoster (Shingrix) (1 of 2) 2037 HPV Vaccine Aged Out No longer eligi ble based on patient's age to complete this topic Hep A Aged Out No longer eligi ble based on patient's age to complete this topic Hib Aged Out No longer eligi ble based on patient's age to complete this topic Meningococcal ACWY Aged Out No longer eligible based on patient's age to complete this topic Pneumococcal Aged Out No longer eligi ble based on patient's age to complete this topic Care Teams Educational Aid Relationship Specialty Start Date End Date Esthela Morgan MD [address] [place] [address] PCP - General 04/29/23
== END 2024-10-20 13:28 | disposition home or self-care (01) ==
PROVIDERS: PCP Internal Medicine; Visit Provider Psychiatry & Neurology Neurology
DX: G43.719 Chronic migraine without aura, intractable, without status migrainosus (principal); G43.709 Chronic migraine without aura, not intractable, without status migrainosus
CPT/HCPCS: 64615

== ENCOUNTER → 2024-10-20 12:59 | Outpatient (BNVA) | payer OTHER, SELFPAY | PROVIDERS: PCP Internal Medicine; Visit Provider Psychiatry & Neurology Neurology | DX: G43.719 Chronic migraine without aura, intractable, without status migrainosus (principal) | CPT/HCPCS: 64615; 99211; J0585 ==

== ENCOUNTER 2025-01-12 14:53 | Outpatient (AMB) | payer OTHER, SELFPAY ==
[2025-01-12 14:55] VITALS: BP 110/84
--- NOTE | 2025-01-12 14:55 | A.OFFVIS_ITS ---
Vital Signs 01/12/25 14:55 Height 5 ft 8 in BP 110/84 Blood Pressure Location Rt brachial Position Sitting Intake Visit Reasons: Botox Intake Note: patient presents for botox injection. pharmacy supplied Allergies Sulfa (Sulfonamide Antibiotics) Allergy (Mild, Verified 01/12/25 14:57) unknown sulfamethoxazole [From Bactrim] Allergy (Mild, Verified 01/12/25 14:57) unknown trimethoprim [From Bactrim] Allergy (Mild, Verified 01/12/25 14:57) unknown Medication List - Last Reconciled 01/12/25 by Melinda Robledo MD brorrpuhvb-wcwegkelefdux-mdct 50-300-40 mg (Fioricet) 2 caps at onset then 1 cap q 4 hrs maximum 6 caps/day orally every 4 to 6 hours PRN; do not exceed 6 caps per day cyclobenzaprine 5 mg PO BEDTIME PRN lorazepam 1 mg PO DAILY PRN onabotulinumtoxinA (Botox) to be injected by physician in the scalp muscles for migraines q 3mths; quetiapine 25 mg PO BEDTIME sertraline 100 mg PO QAM HPI Comments Details: ? 39y/o female comes for treatment of migraines with botox. How many migraine days prior to botox 20-25days per month How long do the migraines last- 1-2 days Intensity of migraine- 07/02 ER visits related to migraine- 1-2 Effectiveness of botox from last two treatment(s) How many migraine days since receiving treatment: 2-3/month Change? in intensity of migraine?decreased Change in frequency of migraine?decreased Change in use of acute medication for migraine?decreased Change in quality of life?better ER visits related to migraine?none Have at least three months elapsed since last treatment (Last botox date - frequency of injections)04/15 ??? Most frequent reported adverse reactions following injection of botox for chronic migraine include neck pain (9%), headache(5%), eyelid ptosis(4%), migraine(4%), muscular weakness(4%), musculuskeletal stiffness(4%), bronchitis (3%), injection site pain (3%), musculoskeletal pain(3%), myalgia(3%), facial ??? Botulinum toxin typeA 200units Lot no [id number] expiration December 2026 was diluted with 4 cc of normal saline . ??? Muscles injected- ??? Frontalis 4 sites ??? Procerus 1 site ??? Medical Office Professional Instructor- 2 sites ??? Temporalis- 8 sites ??? Occipitalis- 8 sites ??? Cervical paraspinals- 4 sites ??? Trapezius- 6 sites- 10 units each ??? 5 units each in 31 site ??? Total use- 185units ??? 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 Physical Exam Vital Signs: Last Vital Signs BP 110/84 01/12/25 14:55 Const General: cooperative and healthy appearing Orientation/consciousness: patient oriented x3 HEENT Head: Yes normal to inspection and Yes normocephalic Neuro General: patient oriented x3, gait normal, tone normal and moves all extremities Office Procedures Botulinum toxin Injection 53529 - Migraine Procedure code (CPT) selection complete Office Meds onabotulinumtoxinA 200 unit solution for injection Performing Provider: Melinda Robledo MD Performing Location: [facility] Administered by: Melinda Robledo MD on 01/12/25 15:51 Dose Route Admin Location Dispensed Lot Number Expiration Date [facility] [employer]ke[employer] Operator 185 unit subcut 200 units [id number] ALLERGAN/BOTOX Comments: see hpi Assessment & Plan Assessment & Plan (1) Chronic migraine without aura: Code(s): G43.709 - Chronic migraine without aura, not intractable, without status migrainosus Category: Medical (2) Chronic migraine without aura, intractable, without status migrainosus: Code(s): G43.719 - Chronic migraine without aura, intractable, without status migrainosus Category: Medical Plan Patient tolerated the procedure well she will call with any side effects. Orders: Orders AMB Botulinum toxin Injection Today G43.719 - Chronic migraine without aura, intractable, without status migrainosus Medications: New onabotulinumtoxinA 200 units subcut ONCE 1 ea 0RF migraine G43.719 - Chronic migraine without aura, intractable, without status migrainosus Coding Level of Care Code Est Pt Level 1 (96141) Diagnoses Chronic migraine without aura G43.709 Chronic migraine without aura, intractable, without status migrainosus G43.719 CPT Codes Botox Injection - Botox 3: 69694 - Migraine ([id number])
--- OUTSIDE RECORDS SUMMARY | 2025-01-12 17:47 | XMS_ITS | Clinical Summary ---
Author Organization [facility] [address] [facility] Address [address] [place] [address] Phone Care Team Providers Care Civil Rights Attorney Name Role Phone Chiqui Santamaria MD Primary Care Provider Allergies Active Allergy Reactions Criticality Noted Date Comments Sulfamethoxazole-Trimethoprim 2024 Sulfa (Sulfonamide Antibiotics) 11/2024 Encounters Date Type Department Care Team Description 11/23/2024 Telephone Gastroenterology - [address] [place] [phone] Anahi Franz MA 11/19/2024 Lab Requisition [facility] - Main Lab 299 [facility] [place] [phone] Soraya Quintero MD Epigastric pain 10/26/2024 3:20 PM EST Office Visit Gastroenterology - [address] [place] [phone] Pema Palacios NP Nausea (Primary Dx); Bloating; Diarrhea, unspecified type 10/19/2024 Telephone Gastroenterology - [address] [place] [phone] Honorio Cates MD from Last 3 Months Social History Tobacco Use Types Packs/Day Years Used Date Smoking Tobacco: Never Assessed Comments Unknown Sex and Gender Information Value Date Recorded Sex Assigned at Female 10/19/2024 1:18 PM EST Legal Sex Female 9:12 PM EST Gender Identity Female 10/19/2024 1:18 PM EST Sexual Orientation Straight 10/19/2024 1: 18 PM EST Plan of Treatment Health Maintenance Due Date Last Done Comments Hepatitis B Vaccines (1 of 3 - 19+ 3-dose series) 2006 Cervical Cancer Screening: Pap Smear 01/20/2008 Cholesterol Screening (Lipid Panel) 10/18/2023 Depression Screening 10/18/2023 HIV Screening 10/18/2023 Hepatitis C Screening 10/18/2023 Social Influencers of Health Screening 10/18/2023 COVID-19 Vaccine ( - season) 2024 09/25/2021, 01/16/2021, 12/26/2020 DTaP,Tdap,and Td Vaccines (4 - Td or Tdap) 08/21/2033 08/21/2023, 07/19/2022, 06/06/2009 Influenza Vaccine Completed 07/30/2024, , 07/19/2022, Additional history exists HIB Vaccines Aged Out No longer eligi [...] patient's age to complete this topic Meningococcal B Vaccine Aged Out No l onger eligible based on patient's age to complete this topic Pneumococcal Vaccine: Pediatrics (0 to 5 Years) and At-Risk Patients (6 to 64 Years) Aged Out No longer eligible based on patient's age to complete this topic RSV Immunization Patients Under 20 months Aged Out No longer eligible based on patient's age to complete this topic Varicella Vaccines Aged Out No longer eligible based on patient's age to complete this topic Procedures Procedure Name Priority Date/Time Associated Diagnosis Comments EXTERNAL COLONOSCOPY REPORT Routine 11/18/2024 1:14 PM EST TISSUE EXAM Routine 11/18/2024 Epigastric pain CBC WITH AUTO DIFFERENTIAL Routine 11/06/2024 3:06 PM EST Nausea Bloating Diarrhea, unspecified type TISSUE TRANSGLUTAMINASE, IGA Routine 11/06/2024 3:06 PM EST Nausea Bloating Diarrhea, unspecified type C-REACTIVE PROTEIN Routine 11/06/2024 3: 06 PM EST Nausea Bloating Diarrhea, unspecified type COMPREHENSIVE METABOLIC PANEL Routine 11/06/2024 3:06 PM EST Nausea Bloating Diarrhea, unspecified type CBC AND DIFFERENTIAL Routine 11/06/2024 3:06 PM EST Nausea Bloating Diarrhea, unspecified type from Last 3 Months Results * External Colonoscopy Report (11/18/2024 1:14 PM EST) Anatomical Region Laterality Modality Endoscopy us Historical Provider GI~PROCEDURE ORDERABLES F inal Result * Tissue Exam (11/18/2024) Final Diagnosis A. Duodenum, biopsy: Benign duodenal mucosa with no specific pathologic change. No villous blunting or increased intraepithelial lymphocytes identified. B. Stomach, biopsy: Gastric mucosa with mild chronic inactive gastritis and reactive changes. No Helicobacter pylori identified. Note: No Helicobacter was identified on routine stains. Because of gastritis and clinical concern, immunohistochemical stain for H. pylori was performed and is interpreted as negative, supporting the above diagnosis. Control stains appropriately. C. Esophagus, biopsy: Benign esophageal squamous mucosa with no specific pathologic change identified. No intraepithelial eosinophils identified. 2:25 PM [facility] Clinical Information Epigastric abdominal pain,Dyspepsia,Nausea Finding:R/O Celiac Sprue,R/O Helicobacter pylori,Esophagitis 2:25 PM [facility] Gross Description A. Small Intestine, Duodenum, biopsy: Labeled duodenum biopsy . Received in formalin are four irregular levi mucosal tissue fragments, each measuring approximately 0.2 cm in greatest dimension, which are wrapped in paper and submitted in toto in one cassette, four pieces, multiple levels on one slide. B. Stomach, biopsy: Labeled gastric biopsy . Received in formalin are four irregular levi mucosal tissue fragments, each measuring approximately 0.2 cm in greatest dimension, which are wrapped in paper and submitted in toto in one cassette, four pieces, multiple levels on one slide. C. Esophagus, biopsy: Labeled esophagus biopsy . Received in formalin are four irregular pink-white mucosal tissue fragments, each measuring approximately 0.2 cm in greatest dimension, which are wrapped in paper and submitted in toto in one cassette, four pieces, multiple levels on one slide. MONICA 2:[address] [facility] Disclaimer NOTE: The immunohistochemical tests and in situ hybridization tests were developed and their performance characteristics were determined by [facility]. They have not been cleared or approved by the U.S. Food and Drug Administration. The FDA has determined that such clearance or approval is not necessary. These tests are used for clinical purposes. They should not be regarded as investigational or for research. This laboratory is certified under the Clinical Laboratory Improvement Amendments of 1988 (CLIA) as qualified to perform high complexity clinical laboratory testing. (controls appropriate) Unless otherwise specified, all tissue is 10% NB formalin fixed and paraffin embedded. 2:[address] [facility] Tissue Esophageal structure / Unknown 11/18/2024 11/19/2024 6:04 AM EST Tissue specimen (specimen) Stomach structure / Unknown 11/18/2024 11/19/2024 6:04 AM EST Tissue specimen (specimen) Esophageal structure / Unknown 11/18/2024 11/19/2024 6:04 AM EST us Soraya Quintero MD LAB PATHOLOGY ORDERABLES Final Result [facility] [address] [place] [address], * CBC auto differential (11/06/2024 3:06 PM EST) WBC 6.8 4.8 - 10.8 K/mcL LAB HEMETOLOGY METHOD 11/06/2024 4:10 PM [facility] RBC 4.30 3.80 - 4.80 M/mcL LAB HEMETOLOGY METHOD 11/06/2024 4:10 PM [facility] Hemoglobin 13.6 11.5 - 16.0 g/dL LAB HEMETOLOGY METHOD 11/06/2024 4:10 PM [facility] Hematocrit 41.0 35.0 - 47.0 % LAB HEMETOLOGY METHOD 11/06/2024 4:10 PM [facility] MCV 95.3 79.0 - 98.0 FL LAB HEMETOLOGY METHOD 11/06/2024 4:10 PM [facility] MCH 31.6 27.0 - 32.0 pcg LAB HEMETOLOGY METHOD 11/06/2024 4:10 PM [facility] MCHC 33.2 32.0 - 37.0 g/dL LAB HEMETOLOGY METHOD 11/06/2024 4:10 PM [facility] RDW 12.5 11.0 - 15.0 % LAB HEMETOLOGY METHOD 11/06/2024 4:10 PM [facility] Platelets 271 130 - 400 K/mcL LAB HEMETOLOGY METHOD 11/06/2024 4:10 PM [facility] MPV 10.1 7.0 - 11.0 FL LAB HEMETOLOGY METHOD 11/06/2024 4:10 PM [facility] NRBC 0.0 <1.0 % LAB HEMETOLOGY METHOD 11/06/2024 4:10 PM [facility] NRBC Absolute 0.00 <0.10 K/mcL LAB HEMETOLOGY METHOD 11/06/2024 4:10 PM [facility] Neutrophils Relative 62.5 % LAB HEMETOLOGY METHOD 11/06/2024 4:10 PM [facility] Lymphocytes Relative 23.2 % LAB HEMETOLOGY METHOD 11/06/2024 4:10 PM [facility] Monocytes Relative 11.9 % LAB HEMETOLOGY METHOD 11/06/2024 4:10 PM [facility] Eosinophils Relative 1.5 % LAB HEMETOLOGY METHOD 11/06/2024 4:10 PM [facility] Basophils Relative 0.6 % LAB HEMETOLOGY METHOD 11/06/2024 4:10 PM [facility] Immature Granulocytes Relative 0.3 % LAB HEMETOLOGY METHOD 11/06/2024 4:10 PM [facility] Neutrophils Absolute 4.25 1.50 - 7.00 K/mcL LAB HEMETOLOGY METHOD 11/06/2024 4:10 PM [facility] Lymphocytes Absolute 1.58 1.00 - 5.00 K/mcL LAB HEMETOLOGY METHOD 11/06/2024 4:10 PM [facility] Monocytes Absolute 0.81 0.20 - 1.00 K/mcL LAB HEMETOLOGY METHOD 11/06/2024 4:10 PM [facility] Eosinophils Absolute 0.10 0.00 - 0.50 K/mcL LAB HEMETOLOGY METHOD 11/06/2024 4:10 PM [facility] Basophils Absolute 0.04 0.00 - 0.20 K/mcL LAB HEMETOLOGY METHOD 11/06/2024 4:10 PM [facility] Immature Granulocytes Absolute 0.02 0.00 - 0.03 K/mcL LAB HEMETOLOGY METHOD 11/06/2024 4:10 PM [facility] Blood Venous blood specimen / Unknown Venipuncture / Unknown 11/06/2024 3:06 PM EST 11/06/2024 4:02 PM EST Pema Palacios NP LAB BLOOD ORDERABLES Final Re sult [facility] [address] [place] [address], [place] [phone] * Tissue transglutaminase, IgA (11/06/2024 3:06 PM EST) Pathologist [facility] Tissue Transglutaminase Ab, IgA Quant 1 <4 unit/mL LAB CHEMISTRY METHOD 11/11/2024 11:[address] [facility] Tissue Transglutaminase Ab, IgA Negative Negative LAB CHEMISTRY METHOD 11/11/2024 11:[address] [facility] Blood Venous blood specimen / Unknown Venipuncture / Unknown 11/06/2024 3:06 PM EST 11/06/2024 4:01 PM EST us Pema Palacios FIRE EQUIPMENT INSPECTOR HELPER LAB BLOOD ORDERABLES Final Re sult Performing Organization Address [facility] Co de Phone Number [facility] [address] [place] [address], [place] [phone] * C-reactive protein (11/06/2024 3:06 PM EST) [facility] C-Reactive Protein <0.29 <=0.50 mg/dL LAB CHEMISTRY METHOD 11/06/2024 4:[address] [facility] Blood Venous blood specimen / Unknown Venipuncture / Unknown 11/06/2024 3:06 PM EST 11/06/2024 4:01 PM EST us Pema Palacios FIRE EQUIPMENT INSPECTOR HELPER LAB BLOOD ORDERABLES Final Re sult Performing Organization Address [facility]/ZIP Co de Phone Number [facility] [address] [place] [address], [place] [phone] * (ABNORMAL) Comprehensive metabolic panel (11/06/2024 3:06 PM EST) [facility] Sodium 140 133 - 145 mmol/L LAB CHEMISTRY METHOD 11/06/2024 4:51 PM [facility] Potassium 4.1 3.5 - 5.5 mmol/L LAB CHEMISTRY METHOD 11/06/2024 4:51 PM [facility] Chloride 109 96 - 110 mmol/L LAB CHEMISTRY METHOD 11/06/2024 4:51 PM [facility] CO2 27 21 - 32 mmol/L LAB CHEMISTRY METHOD 11/06/2024 4:51 PM [facility] Anion Gap 4 3 - 11 LAB CHEMISTRY METHOD 11/06/2024 4:51 PM [facility] Glucose 67(L) 70 - 100 mg/dL LAB CHEMISTRY METHOD 11/06/2024 4:51 PM [facility] BUN 15 5 - 25 mg/dL LAB CHEMISTRY METHOD 11/06/2024 4:51 PM [facility] Creatinine 0.82 0.50 - 1.10 mg/dL LAB CHEMISTRY METHOD 11/06/2024 4:51 PM [facility] eGFR 95 >=60 mL/min/1. 73m2 LAB CHEMISTRY METHOD 11/06/2024 4:51 PM [facility] Comment:Calculation based on the??Chronic Kidney Disease Epidemiology Collaboration (CKD-EPI) equation refit??without adjustment for race. BUN/Creatinine Ratio 18.3 LAB CHEMISTRY METHOD 11/06/2024 4:51 PM [facility] Calcium 9.1 8.5 - 10.5 mg/dL LAB CHEMISTRY METHOD 11/06/2024 4:51 PM [facility] AST (SGOT) 21 10 - 42 unit/L LAB CHEMISTRY METHOD 11/06/2024 4:51 PM [facility] ALT (SGPT) 21 10 - 60 unit/L LAB CHEMISTRY METHOD 11/06/2024 4:51 PM [facility] Alkaline Phosphatase 46 42 - 121 unit/L LAB CHEMISTRY METHOD 11/06/2024 4:51 PM [facility] Total Protein 7.4 6.0 - 8.0 g/dL LAB CHEMISTRY METHOD 11/06/2024 4:[address] [facility] Albumin 4.1 3.2 - 5.0 g/dL LAB CHEMISTRY METHOD 11/06/2024 4:[address] [facility] Total Bilirubin 0.6 0.0 - 1.4 mg/dL LAB CHEMISTRY METHOD 11/06/2024 4:[address] [facility] Blood Venous blood specimen / Unknown Venipuncture / Unknown 11/06/2024 3:06 PM EST 11/06/2024 4:01 PM EST Pema Palacios FIRE EQUIPMENT INSPECTOR HELPER LAB BLOOD ORDERABLES Final Re sult [facility] [address] [place] [address], from Last [address] [place] [address] [facility] [phone] [facility] Care Teams Civil Rights Attorney Relationship Specialty Start Date End Date Chiqui Santamaria MD [address] [place] [phone] PCP - General Internal Medicine 10/19/24
--- OUTSIDE RECORDS SUMMARY | 2025-01-12 17:47 | XMS_ITS | Clinical Summary ---
Author Organization [facility] Address [address] [place] [address] Care Team Providers Care Dater Assembler Name Role Phone Esthela Morgan MD Primary Care Provider Allergies Active Allergy Reactions Criticality Noted Date Comments Sulfa Antibiotics 08/23/2017 [employer] Comment: Reaction Date: 23Sep1800; Medications Levonorgestrel -Ethinyl Estrad (Nunu-28) 0.15-30 MG-MCG per tablet TAKE 1 TABLET [...] age to complete this topic Care Teams Dater Assembler Relationship Specialty Start Date End Date Esthela Morgan MD [address] [place] [address] PCP - General 04/29/23
--- OUTSIDE RECORDS SUMMARY | 2025-01-12 17:47 | XMS_ITS | Encounter Summary ---
Author Organization [facility] Address [address] [place] [address] Care Team Providers Care Forensic Photographer Name Role Phone Chiqui Santamaria MD Primary Care Provider [phone] Encounter Details Date Type Department Care Team (Late st Contact Info) Description 11/19/2024 Lab Requisition [facility] - Main Lab [address] [facility] [place] [phone] Soraya Quintero MD [address] [address] Epigastric pain Social History Tobacco Use Types Packs/Day Years Used Date Smoking Tobacco: Never Assessed Comments Unknown Sex and Gender Information Value Date Recorded Sex Assigned at Female 10/19/2024 1:18 PM EST Legal Sex Female 9:12 PM EST Gender Identity Female 10/19/2024 1:18 PM EST Sexual Orientation Straight 10/19/2024 1: 18 PM EST documented as of this encounter Progress Notes * Soraya Quintero MD - 11/19/2024 5:58 AM EST Carrie- Small bowel and esophagus biopsies were normal. No evidence of celiac disease or esophagus inflammation. Mild stomach irritation was seen without H. Pylori. Continue antacids as needed. documented in this encounter Plan of Treatment Not on file documented as of this encounter Procedures Procedure Name Priority Date/Time Associated Diagnosis Comments TISSUE EXAM Routine 11/18/2024 Epigastric pain documented in this encounter Results * Tissue Exam (11/18/2024) Final Diagnosis A. [...] identified. No intraepithelial eosinophils identified. 2:25 PM [facility] Clinical Information Epigastric abdominal pain,Dyspepsia,Nausea Finding:R/O Celiac Sprue,R/O Helicobacter pylori,Esophagitis 2:25 PM [facility] Gross Description A. Small Intestine, [...] levels on one slide. MONICA 2:25 PM [facility] Disclaimer NOTE: The immunohistochemical tests and in situ hybridization tests were developed and their performance characteristics were determined by [facility]. They have not been cleared [...] fixed and paraffin embedded. 2:25 PM EST [facility] Tissue Esophageal structure / Unknown 11/18/2024 11/19/2024 6:04 AM EST Tissue specimen (specimen) Stomach structure / Unknown 11/18/2024 11/19/2024 6:04 AM EST Tissue specimen (specimen) Esophageal structure / Unknown 11/18/2024 11/19/2024 6:04 AM EST us Soraya Quintero MD LAB PATHOLOGY ORDERABLES Final Result [facility] [address] [place] [address], documented in this encounter Visit Diagnoses Diagnosis Epigastric pain Abdominal pain, epigastric documented in this encounter Care Teams Forensic Photographer Relationship Specialty Start Date End Date Chiqui Santamaria MD [address] [place] [address] PCP - General Internal Medicine 10/19/24 documented as of this encounter
== END 2025-01-12 15:13 | disposition home or self-care (01) ==
LOC: HO.HSMS 14:53
PROVIDERS: PCP Internal Medicine; Visit Provider Psychiatry & Neurology Neurology
DX: G43.719 Chronic migraine without aura, intractable, without status migrainosus (principal)
CPT/HCPCS: 64615

== ENCOUNTER → 2025-01-12 14:53 | Outpatient (BNVA) | payer OTHER, SELFPAY | PROVIDERS: PCP Internal Medicine; Visit Provider Psychiatry & Neurology Neurology | DX: G43.719 Chronic migraine without aura, intractable, without status migrainosus (principal) | CPT/HCPCS: 64615; 99211; J0585 ==

== ENCOUNTER 2025-04-06 15:16 | Outpatient (AMB) | payer OTHER, SELFPAY ==
[2025-04-06 15:25] VITALS: BP 118/68; PULSE 75; O2SAT 98; BMI 27.4
--- NOTE | 2025-04-06 15:25 | MHC.OFFVIS ---
Vital Signs 04/06/25 15:25 Height 5 ft 8 in Weight 180 lb BMI 27.4 BP 118/68 Blood Pressure Location Rt brachial Position Sitting Pulse 75 Pulse Source Pulse Oximeter Pulse Oximetry (%) 98 Oxygen Delivery Method Room Air Intake Visit Reasons: BOTOX Intake Note: Patient presents for botox injection. pharmacy supplied Provider Relations Coordinator Required: No Accompanied by: Self / Same As Patient Allergies Sulfa (Sulfonamide Antibiotics) Allergy (Mild, Verified 04/06/25 15:25) unknown sulfamethoxazole (From Bactrim) Allergy (Mild, Verified 04/06/25 15:25) unknown trimethoprim (From Bactrim) Allergy (Mild, Verified 04/06/25 15:25) unknown Medication List - Last Reconciled 04/06/25 by Melinda Robledo MD cyclobenzaprine 5 mg PO BEDTIME PRN lorazepam 1 mg PO DAILY PRN onabotulinumtoxinA (Botox) to be injected by physician in the scalp muscles for migraines q 3mths; quetiapine 25 mg PO BEDTIME sertraline 100 mg PO QAM sertraline 150 mg PO DAILY valacyclovir (Valtrex) 1,000 mg PO DAILY HPI Comments Details: ? 39y/o female comes for treatment of migraines with botox. How many migraine days prior to botox 20-25days per month How long do the migraines last- 1-2 days Intensity of migraine- 07/02 ER visits related to migraine- 1-2 Effectiveness of botox from last two treatment(s) How many migraine days since receiving treatment: 2-3/month Change? in intensity of migraine?decreased Change in frequency of migraine?decreased Change in use of acute medication for migraine?decreased Change in quality of life?better ER visits related to migraine?none Have at least three months elapsed since last treatment (Last botox date - frequency of injections)04/15 ??? Most frequent reported adverse reactions following injection of botox for chronic migraine include neck pain (9%), headache(5%), eyelid ptosis(4%), migraine(4%), muscular weakness(4%), musculuskeletal stiffness(4%), bronchitis(3%), injection site pain (3%), musculoskeletal pain(3%), myalgia(3%), facial ??? Botulinum toxin typeA 200units Lot no [id number] expiration December 2026 was diluted with 4 cc of normal saline . ??? Muscles injected- ??? Frontalis 4 sites ??? Procerus 1 site ??? Classified Advertising Clerk- 2 sites ??? Temporalis- 8 sites ??? Occipitalis- 8 sites ??? Cervical paraspinals- 4 sites ??? Trapezius- 6 sites- 10 units each ??? 5 units each in 31 site ??? Total use- 185units ??? 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 Physical Exam Vital Signs: Last Vital Signs Pulse 75 04/06/25 15:25 BP 118/68 04/06/25 15:25 Pulse Ox 98 04/06/25 15:25 Oxygen Delivery Method Room Air 04/06/25 15:25 BMI result Body Mass Index 27.4 Const General: cooperative and healthy appearing Orientation/consciousness: patient oriented x3 HEENT Head: Yes normal to inspection and Yes normocephalic Neuro General: patient oriented x3, gait normal, tone normal and moves all extremities Office Procedures Botulinum toxin Injection 25049 - Migraine Procedure code (CPT) selection complete Office Meds onabotulinumtoxinA 200 unit solution for injection Performing Provider: Melinda Robledo MD Performing Location: [facility] Administered by: Melinda Robledo MD on 04/06/25 16:23 Dose Route Admin Location Dispensed Lot Number Expiration Date [facility] Clinical Implementation Specialist 185 unit subcut 200 units [id number] ALLERGAN/BOTOX Total Dispensed Waste 200 units 7.5 % Comments: see hpi Assessment & Plan Assessment & Plan (1) Chronic migraine without aura, intractable, without status migrainosus: Code(s): G43.719 - Chronic migraine without aura, intractable, without status migrainosus Category: Medical Plan Patient tolerated the procedure well she will call with any side effects. Orders: Orders AMB Botulinum toxin Injection Today G43.719 - Chronic migraine without aura, intractable, without status migrainosus Coding Level of Care Code Est Pt Level 1 (62568) Diagnoses Chronic migraine without aura, intractable, without status migrainosus G43.719 CPT Codes Botox Injection - Botox 3: 53040 - Migraine ([id number])
--- OUTSIDE RECORDS SUMMARY | 2025-04-06 16:25 | XMS_ITS | Clinical Summary ---
Author Organization [facility] Address [address] [place] [address] Care Team Providers Care Restaurant Associate Name Role Phone Esthela Morgan MD Primary Care Provider Allergies Active Allergy Reactions Criticality Noted Date Comments Sulfa Antibiotics 08/23/2017 [employer] Comment: Reaction Date: 23Sep1800; Medications Levonorgestrel -Ethinyl Estrad (Rueter-28) 0.15-30 MG-MCG per tablet TAKE 1 TABLET [...] 68 09/05/2017 4:30 PM EST Temperature 36.1 C (96.9 F) 04/19/2020 2:55 PM EDT Temporal Respiratory Rate 14 09/05/2017 4:30 PM [...] - 2023-2 5 season) 2024 Influenza (#1) 2025 Zoster (Shingrix) (1 of 2) 2037 HPV [...] age to complete this topic Care Teams Restaurant Associate Relationship Specialty Start Date End Date Esthela Morgan MD [address] [place] [address] PCP - General 04/29/23
--- OUTSIDE RECORDS SUMMARY | 2025-04-06 16:25 | XMS_ITS | Clinical Summary ---
Author Organization [facility] [address] [facility] Address [address] [place] [address] Phone Care Team Providers Care Legal Billing Coordinator Name Role Phone Chiqui Santamaria MD Primary Care Provider [phone] Allergies Active Allergy Reactions Criticality Noted Date Comments Sulfamethoxazole-Trimethoprim 2024 Sulfa (Sulfonamide Antibiotics) 11/2024 Social History Tobacco Use Types Packs/Day Years [...] of Health Screening 10/18/2023 COVID-19 Vaccine ( season) 2024 09/25/2021, 01/16/2021, 12/26/2020 Influenza Vaccine (#1) 2025 , 08/28/2023, 07/19/2022, Additional history exists DTaP,Tdap,and Td Vaccines (4 - Td or Tdap) 08/21/2033 08/21/2023, 07/19/2022, 06/06/2009 HIB Vaccines Aged Out No longer eligi [...] 5 Years) and At-Risk Patients (6 to 49 Years) Aged Out No longer eligible based on patient's age to complete this topic RSV Immunization Patients Under 20 months Aged Out No longer eligible based on patient's age to complete this topic Varicella Vaccines Aged Out No longer eligible based on patient's age to complete this topic Insurance Care Teams Legal Billing Coordinator Relationship Specialty Start Date End Date Chiqui Santamaria MD [address] [place] [phone] PCP - General Internal Medicine 10/19/24
--- OUTSIDE RECORDS SUMMARY | 2025-04-06 16:25 | XMS_ITS | Patient Health Record ---
Author Organization [facility] Address [address] [place] [address] [address] [place] [address] Care Team Providers Care Solar Sales Representative Name Role Phone Guillermina Almaraz MD Primary Care Provider Jesus Tuttle D.C. Unavailable Unavailable Reason For Referral No Information Plan Of Treatment No Information Insurance Providers Payer Name Payer Address Payer Phone Subscriber Number Group Number Insured Name Patient Relationship to Insured Coverage Start Date Coverage End Date [facility] [address] [place] [address] [id number] Carrie Vasquez Self - patient is the insured
== END 2025-04-06 15:59 | disposition home or self-care (01) ==
LOC: HO.HSMS 15:17
PROVIDERS: PCP Internal Medicine; Visit Provider Psychiatry & Neurology Neurology
DX: G43.719 Chronic migraine without aura, intractable, without status migrainosus (principal)
CPT/HCPCS: 64615

== ENCOUNTER → 2025-04-06 15:16 | Outpatient (BNVA) | payer OTHER, SELFPAY | PROVIDERS: PCP Internal Medicine; Visit Provider Psychiatry & Neurology Neurology | DX: G43.719 Chronic migraine without aura, intractable, without status migrainosus (principal) | CPT/HCPCS: 64615; 99211; J0585 ==

== ENCOUNTER 2025-06-29 15:40 | Outpatient (AMB) | payer OTHER, SELFPAY ==
[2025-06-29 15:40] VITALS: BP 132/80; PULSE 60; O2SAT 97; BMI 26.9
--- NOTE | 2025-06-29 15:40 | A.OFFVIS_ITS ---
Vital Signs 06/29/25 15:40 Height 5 ft 8 in Weight 177 lb 4 oz BMI 26.9 BP 132/80 Blood Pressure Location Rt brachial Position Sitting Pulse 60 Pulse Source Pulse Oximeter Pulse Oximetry (%) 97 Oxygen Delivery Method Room Air Intake Visit Reasons: botox Intake Note: Botox 200 Curator Of Photography And Prints Required: No Accompanied by: Self / Same As Patient Allergies Sulfa (Sulfonamide Antibiotics) Allergy (Mild, Verified 06/29/25 15:40) unknown sulfamethoxazole (From Bactrim) Allergy (Mild, Verified 06/29/25 15:40) unknown trimethoprim (From Bactrim) Allergy (Mild, Verified 06/29/25 15:40) unknown Medication List - Last Reconciled 06/30/25 by Melinda Robledo MD cyclobenzaprine 5 mg PO BEDTIME PRN lorazepam 1 mg PO DAILY PRN onabotulinumtoxinA (Botox) to be injected by physician in the scalp muscles for migraines q 3mths; quetiapine 25 mg PO BEDTIME sertraline 150 mg PO DAILY valacyclovir (Valtrex) 1,000 mg PO DAILY HPI Comments Details: ? 40y/o female comes for treatment of migraines with botox. How many migraine days prior to botox 20-25days per month How long do the migraines last- 1-2 days Intensity of migraine- 07/02 ER visits related to migraine- 1-2 Effectiveness of botox from last two treatment(s) How many migraine days since receiving treatment: 2-3/month Change? in intensity of migraine?decreased Change in frequency of migraine?decreased Change in use of acute medication for migraine?decreased Change in quality of life?better ER visits related to migraine?none Have at least three months elapsed since last treatment (Last botox date - frequency of injections)3 mths ??? Most frequent reported adverse reactions following injection of botox for chronic migraine include neck pain (9%), headache(5%), eyelid ptosis(4%), migraine(4%), muscular weakness(4%), musculuskeletal stiffness(4%), bronchitis(3%), injection site pain (3%), musculoskeletal pain(3%), myalgia(3%), facial ??? Botulinum toxin typeA 200units Lot no [id number] expiration Jul 2027 was diluted with 4 cc of normal saline . ??? Muscles injected- ??? Frontalis 4 sites ??? Procerus 1 site ??? Policy Checker- 2 sites ??? Temporalis- 8 sites ??? Occipitalis- 8 sites ??? Cervical paraspinals- 4 sites ??? Trapezius- 6 sites- 10 units each ??? 5 units each in 31 site ??? Total use- 185units ??? 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 Physical Exam Vital Signs: Last Vital Signs Pulse 60 06/29/25 15:40 BP 132/80 06/29/25 15:40 Pulse Ox 97 06/29/25 15:40 Oxygen Delivery Method Room Air 06/29/25 15:40 BMI result Body Mass Index 26.9 Const General: cooperative and healthy appearing Orientation/consciousness: patient oriented x3 HEENT Head: Yes normal to inspection and Yes normocephalic Neuro General: patient oriented x3, gait normal, tone normal and moves all extremities Office Procedures Botulinum toxin Injection 86479 - Migraine Procedure code (CPT) selection complete Office Meds onabotulinumtoxinA 200 unit solution for injection Performing Provider: Melinda Robledo MD [place] [facility] Administered by: Melinda Robledo MD on 06/30/25 07:55 Dose Route Admin Location Dispensed Lot Number Expiration Date [facility] Utilities Estimator And Drafter 185 unit subcut 200 units [id number] ALLERGAN /BOTOX Total Dispensed Waste 200 units 7.5 % Comments: see HPI Assessment & Plan Assessment & Plan (1) Chronic migraine without aura, intractable, without status migrainosus: Code(s): G43.719 - Chronic migraine without aura, intractable, without status migrainosus Category: Medical Plan Patient tolerated the procedure well she will call with any side effects. Orders: Orders AMB Botulinum toxin Injection 06/29/25 G43.719 - Chronic migraine without aura, intractable, without status migrainosus Coding Level of Care Code Est Pt Level 1 (99726) Diagnoses Chronic migraine without aura, intractable, without status migrainosus G43.719 CPT Codes Botox Injection - Botox 3: 34467 - Migraine ([id number])
--- OUTSIDE RECORDS SUMMARY | 2025-06-29 18:40 | XMS_ITS | Encounter Summary ---
Author Organization [facility] Address [address] [place] [address] Phone Care Team Providers Care Double Surface Operator Name Role Phone Mac Foote MD Primary Care Provider Encounter Details Date Type Department Care Team (Late st Contact Info) Description 04/23/2024 Telephone [facility] Main [place] [address] [place] [address] Carlos Silva MD [address] [place] [address] Division of Rheumatology, [place] [address] [email or web address] Social History Tobacco Use Types Packs/Day Years Used Date Smoking Tobacco: Never Passive Smoke Exposure: Never Smokeless Tobacco: Never Alcohol Use Standard Drinks/Week Comments Yes 0 (1 standard drink = 0.6 oz pur e alcohol) social Education Answer Date Recorded Are you interested in more education? Not on rissa e 2023 Are you concerned about learning? Not on file 2023 No 2023 No 2023 Digital Access Answer Date Recorded No 02/17/2023 No 02/17/2023 Reliable internet access at home? Not on file 02/17/2023 Device with a working camera? Not on file Intimate Partner Violence Answer Date R ecorded Are you denied basic needs s uch as food, clothing, or medical care? No 08/21/2023 In the past 12 months have y ou been in a relationship with a person who hurts, threatens, or tries to control you? No 08/21/2023 Are you denied basic needs s uch as food, clothing, or medical care? No 08/21/2023 In the past 12 months have y ou been in a relationship with a person who hurts, threatens, or tries to control you? No 08/21/2023 Comments No Sex and Gender Information Value Date Recorded Sex Assigned at Female 08/21/2023 10:46 AM EST Legal Sex Female 6:54 PM EST Gender Identity Female 08/21/2023 10:46 AM EST Sexual Orientation Not on file documented as of this encounter Plan of Treatment Not on file documented as of this encounter Visit Diagnoses Not on filedocumented in this encounter Care Teams Double Surface Operator Relationship Specialty Start Date End Date Mac Foote MD [address] [place] [address] Drive [address] [place] [phone] PCP - General Obstetrics and Gynecology 07/21/18 documented as of this encounter Additional Source Comments The information contained in this document represents components of the legal health record. It is not the complete legal health record.[facility]
--- OUTSIDE RECORDS SUMMARY | 2025-06-29 18:40 | XMS_ITS | Encounter Summary ---
Author Organization [facility] Address [address] [facility] [address] [place] [address] Phone Care Team Providers Care Power House Control Room Operator Name Role Phone Mac Foote MD Primary Care Provider Reason for Referral * Physical Therapy (Routine) - Closed Specialty Diagnoses / Procedures Referred By Bentley t Referred To Contact Physical Therapy Diagnoses Vaginismus System, Provider Not In, PhD [id number] [place] [address] Phone: tel: Referral ID Status Reason Start Date Expiration Date Visits Re quested Visits Authorized [id number] Closed 07/21/2018 03/22/2019 50 50 Encounter Details Date Type Department Care Team (Latest Contact Info) Description 07/21/2018 Transcribe Orders [facility] [address] [place] [address] Mac Foote MD [address] [place] [address] Drive [address] [place] [address] Vaginismus (Primary Dx) Social History Tobacco Use Types Packs/Day Years Used Date Smoking Tobacco: Never Assessed Comments Unknown Sex and Gender Information Value Date Recorded Sex Assigned at Female 08/21/2023 10:46 AM EST Legal Sex Female 6:54 PM EST Gender Identity Female 08/21/2023 10:46 AM EST Sexual Orientation Not on file documented as of this encounter Plan of Treatment Scheduled Referrals Name Type Priority Associated Diagnoses Order Schedule Ambulatory referral to [facility] Physical Therapy Outpatient Referral Routine Vaginismus Ordered: 07/21/2018 documented as of this encounter Visit Diagnoses Diagnosis Vaginismus- Primary documented in this encounter Care Teams Power House Control Room Operator Relationship Specialty Start Date End Date Mac Foote MD [address] [place] [address] [address] [place] [address] PCP - General Obstetrics and Gynecology 07/21/18 documented as of this encounter Additional Source Comments The information contained in this document represents components of the legal health record. It is not the complete legal health record.[facility]
--- OUTSIDE RECORDS SUMMARY | 2025-06-29 18:40 | XMS_ITS | Encounter Summary ---
Author Organization [facility] Address [address] [facility] [address] [place] [address] Phone Care Team Providers Care Silo Tender Name Role Phone Mac Foote MD Primary Care Provider Reason for Referral * Physical Therapy (Routine) - Closed Specialty Diagnoses / Procedures Referred By Contbrenda t Referred To Contact Physical Therapy Diagnoses Encounter for rehabilitation System, Provider Not In, PhD [id number] [place] [address] Phone: tel: Referral ID Status Reason Start Date Expiration Date Visits Re quested Visits Authorized [id number] Closed 07/18/2018 07/18/2019 1 1 Encounter Details Date Type Department Care Team (Latest Contact Info) Description 07/18/2018 Transcribe Orders [facility] [address] [place] [address] Mac Foote MD [address] [place] [address] Drive [address] [place] [address] Encounter for rehabilitation (Primary Dx) Social History Tobacco Use Types [...] Scheduled Referrals Name Type Priority Associated Diagnoses Orde r Schedule Ambulatory referral to [facility] Physical Therapy Outpatient Referral Routine Encounter for rehabilitation Ordered: 07/18/2018 documented as of this encounter Visit Diagnoses Diagnosis Encounter for rehabilitation- Primary documented in this encounter Care Teams Silo Tender Relationship Specialty Start Date End Date Mac Foote MD [address] [place] [address] [address] [place] [address] PCP - General Obstetrics and Gynecology 07/21/18 documented as of this encounter Additional Source Comments The information contained in this document represents components of the legal health record. It is not the complete legal health record.[facility]
--- OUTSIDE RECORDS SUMMARY | 2025-06-29 18:40 | XMS_ITS | Clinical Summary ---
Author Organization [facility] Address [address] [place] [address] Phone Care Team Providers Care Woods Rider Name Role Phone Mac Foote MD Primary Care Provider Allergies Active Allergy Reactions Criticality Noted Date Comments Sulfa (Sulfonamide Antibiotics) Hives Medium 07/25 Medications sertraline (ZOLOFT) 100 MG tablet Take 100 mg by mouth daily. Active QUEtiapine (SEROQUEL) 25 MG tablet Take 25 mg by mouth nightly at bedtime. Active LORazepam (ATIVAN) 1 MG tablet Take 1 mg by mouth every 6 (six) hours as needed for anxiety. Active levonorgestreL (JULISA) 14 mcg/24 hrs (3 yrs) 13.5 mg IUD 1 each by Intrauterine route Once every 3 years. Active BOTOX 200 unit SolR 4 Active valACYclovir (VALTREX) 500 MG tablet Take 500 mg by mouth as needed. Active gabapentin (NEURONTIN) 100 MG capsuleIndicati ons:Chronic bilateral low back pain without sciatica Take 3 capsules (300 mg total) by mouth 3 (three) times a day. 90 capsule 2 4 Active diclofenac sodium (VOLTAREN) 75 MG EC tabletIndicatio ns:DDD (degenerative disc disease), lumbar Take 1 tablet (75 mg total) by mouth 2 (two) times a day with meals. 60 tablet 1 4 Active Active Problems Problem Noted Date Diagnosed Date Chronic pain of left knee 03/10/2024 Chronic bilateral low back pain without sciatica 11/01/2023 Immunizations Immunization Administration Dates Next Due Tdap 08/21/2023 Social History Tobacco Use Types Packs/Day Years Used Date Smoking Tobacco: Never Passive Smoke Exposure: Never Smokeless Tobacco: Never Tobacco Cessation:Counseling Given: Not Answered Alcohol Use Standard Drinks/Week Comments Yes 0 [...] AM EST Sexual Orientation Not on file Last Filed Vital Signs Vital Sign Reading Time Taken Comments Blood Pressure 129/78 10/30/2023 8:45 AM EST Pulse 58 10/30/2023 8:45 AM EST Temperature 36 C (96.8 F) 10/30/2023 8:45 AM EST Respiratory Rate 18 08/21/2023 11:21 AM EST Oxygen Saturation 100% 10/30/2023 8:45 AM EST Inhaled Oxygen Concentration - - Weight 79.4 kg (175 lb) 04/14/2024 9:50 AM EDT Height 172.7 cm (5' 8 ) 04/14/2024 9:50 AM EDT Body Mass Index 26.61 04/14/2024 9:50 AM EDT Plan of Treatment Health Maintenance Due Date Last Done Comments DEPRESSION SCREENING 1999 HEPATITIS C SCREENING 2005 HIV ONE-TIME SCREENING (18-65 YEARS) 2005 PAP SMEAR 01/20/2008 INFLUENZA VACCINE (#1) 2025 , 07/19/2022, 06/14/2021, Additional history exists COVID-19 VACCINE ( season) 2025 09/25/2021, 01/16/2021, 12/26/2020 SCREENING FOR DIABETES 04/14/2027 04/14/2024 Adult Td,Tdap Booster 08/21/2033 08/21/2023, 022 SMOKING STATUS SCREENING (Once After 26 Yrs) Completed 10/30/2023 HEPATITIS A VACCINES Aged Out No long er eligible based on patient's age to complete this topic HIB VACCINES Aged Out No longer eligi ble based on patient's age to complete this topic MENINGOCOCCAL VACCINES (ACWY) Aged Out No longer eligible based on patient's age to complete this topic MENINGOCOCCAL VACCINES (B) Aged Out N o longer eligible based on patient's age to complete this topic PNEUMOCOCCAL VACCINES (0-49 years) Aged Out No longer eligible based on patient's age to complete this topic Medical Devices Not on file Insurance [facility] PPO [employer] COMPENSATION Care Teams Woods Rider Relationship Specialty Start Date End Date Mac Foote MD [address] [facility] [address] [place] [address] PCP - General Obstetrics and Gynecology 07/21/18 Additional Source Comments The information contained in this document represents components of the legal health record. It is not the complete legal health record.[facility]
--- OUTSIDE RECORDS SUMMARY | 2025-06-29 18:40 | XMS_ITS | Clinical Summary ---
Author Organization [facility] Address [address] [place] [address] Care Team Providers Care Welfare Project Manager Name Role Phone Esthela Morgan MD Primary Care Provider Allergies Active Allergy Reactions Criticality Noted Date Comments Sulfa Antibiotics 08/23/2017 [employer] Comment: Reaction Date: 23Sep1800; Medications Levonorgestrel -Ethinyl [...] 3-dose series) 2006 COVID-19 Vaccine ( - 2024-2 6 season) 2025 Influenza (#1) 2025 Zoster (Shingrix) (1 of 2) 2037 HPV Vaccine (No Doses Required) Completed Hep A Aged Out No longer eligi ble based on patient's age to complete this topic Hib Aged Out No longer eligi ble based on patient's age to complete this topic Meningococcal ACWY Aged Out No longer eligible based on patient's age to complete this topic Pneumococcal Aged Out No longer eligi ble based on patient's age to complete this topic Care Teams Welfare Project Manager Relationship Specialty Start Date End Date Esthela Morgan MD [address] [place] [address] PCP - General 04/29/23
--- OUTSIDE RECORDS SUMMARY | 2025-06-29 18:40 | XMS_ITS | Encounter Summary ---
Author Organization [facility] Address [address] [place] [address] Phone Care Team Providers Care Watcher Lookout Tower Name Role Phone Mac Foote MD Primary Care Provider Encounter Details Date Type Department Care Team (Late st Contact Info) Description 03/10/2024 Procedure Pass [facility] Forensic Toxicologist [place] [address] [place] [address] Social History Tobacco Use Types Packs/Day Years [...] on filedocumented in this encounter Care Teams Watcher Lookout Tower Relationship Specialty Start Date End Date Mac Fotoe MD [address] [place] [address] Drive [address] [place] [address] PCP - General Obstetrics and Gynecology 07/21/18 documented as of this encounter Additional Source Comments The information contained in this document represents components of the legal health record. It is not the complete legal health record.[facility]
--- OUTSIDE RECORDS SUMMARY | 2025-06-29 18:40 | XMS_ITS | Encounter Summary ---
Author Organization [facility] Address [address] [place] [address] Care Team Providers Care Interventional Pain Physician Name Role Phone Chiqui Santamaria MD Primary Care Provider [phone] Encounter Details Date Type Department Care Team (Late st Contact Info) Description 11/19/2024 Lab Requisition [facility] [address] [facility] [place] [phone] Soraya Quintero MD [address] [address] Epigastric pain Social History Tobacco Use Types [...] identified. No intraepithelial eosinophils identified. 2:25 PM [facility] Clinical Information Epigastric abdominal pain,Dyspepsia,Nausea Finding:R/O Celiac Sprue,R/O Helicobacter pylori,Esophagitis 2:25 PM [facility] Gross Description A. Small Intestine, [...] levels on one slide. MONICA 2:25 PM [facility] Disclaimer NOTE: The immunohistochemical tests and in situ hybridization tests were developed and their performance characteristics were determined by [facility]. They have not been cleared [...] fixed and paraffin embedded. 2:25 PM EST [facility] Tissue Esophageal structure / Unknown 11/18/2024 11/19/2024 6:04 AM EST Tissue specimen (specimen) Stomach structure / Unknown 11/18/2024 11/19/2024 6:04 AM EST Tissue specimen (specimen) Esophageal structure / Unknown 11/18/2024 11/19/2024 6:04 AM EST us Soraya Quintero MD LAB PATHOLOGY ORDERABLES Final Result [facility] [address] [place] [address], documented in this encounter Visit Diagnoses Diagnosis Epigastric pain Abdominal pain, epigastric documented in this encounter Care Teams Interventional Pain Physician Relationship Specialty Start Date End Date Chiqui Santamaria MD [address] [place] [address] PCP - General Internal Medicine 10/19/24 documented as of this encounter
--- OUTSIDE RECORDS SUMMARY | 2025-06-29 18:40 | XMS_ITS | Encounter Summary ---
Author Organization [facility] Address [address] [place] [address] Care Team Providers Care Etiquette Teacher Name Role Phone Ketty Santamaria MD Primary Care Provider [phone] Reason for Visit * Reason Onset Date Comments Pre-certification 06/24/2025 GENERAL INFERT ILITY Encounter Details Date Type Department Care Team ([facility] Contact Info) Description 06/24/2025 Telephone Reproductive Endocrinology & Infertility [address] [place] [address] [address] [place] [address] Ester Fox MD [address] [place] [address] [place] [address] Pre-certification (GENERAL INFERTILITY ) Social History Tobacco Use Types Packs/Day Years Used Date Smoking Tobacco: Never Assessed Comments Unknown Sex and Gender Information Value Date Recorded Sex Assigned at Not on file Legal Sex Female 3:45 PM EDT Gender Identity Not on file Sexual Orientation Not on file documented as of this encounter Miscellaneous Notes * Telephone Encounter - Alexsandra Lima - 06/24/2025 9:24 AM EDT Images from the original note were not included. INFERTILITY BENEFITS SUMMARY CHECK Primary [x] Secondary [] Patient: Carrie Gorman MR: [id number] : 1985 Insurance Name/Plan: [employer] Phone #: [phone] Ext: Rep's Name/Department: GUILLERMO C / DISCONNECTED / SALEEM D / Date: 06/24/2025 Time: 9:24 AM Call Reference: [id number] ID #: [id number] [employer] Employee: Yes [] No [x] Effective Date: 02/21/2025 Calendar Year Plan PPO Renewal Date: N/A Follows State Mandate? Yes [] No [x] If so, which state? Notes: Physician Name: ESTER FOX Tax ID #: [id number] Referral required? Yes [] or No [x] Lab Covered @ [facility]? Yes [x] No [] (If no, specific Lab e.g. [facility] or other): Insurance Team: *Member needs to enroll with Case Management. Y [] N [x] Must the patient register with a [employer] vendor for infertility benefits? Y [] N [x] (Example: [employer] [facility] [employer] [facility] or [facility] [employer] [facility]) IN-NETWORK BENEFITS: Benefit? Pre-auth? Consultation (Z31.69, Z30.09, Z31.84,Z31.49) Consultation/Fertility Testing: YES NO YES NO SONO (24534, 75963, 33034) [x] [] [x] [] HSG * Outpatient (69880,05838) [x] [] [x] [] Treatments: IUI (Insemination) (37003, 05859) [x] [] [x] [] Max Attempts Covered: Must the patient do a number of IUI before IVF approval? Yes [] No [] If so, how many: _PER REP BASED ON MEDICAL NECESSITY IVF (59862/22254/73002) [x] [] [x] [] Max Attempts Covered: Frozen Embryo Transfer (FET) (75683) [x] [] [x] [] Max Attempts Covered: Count as IVF attempt: Y [] / N [] ICSI (83583, 08930) [x] [] [x] [] PGD Diagnostic Biopsy (46423,07038) [x] [] [x] [] Assisted Embryo Hatching (95407) [x] [] [x] [] Cryopreservation Oocytes (61675) [x] [] [x] [] Cryopreservation Embryos (03815) [x] [] [x] [] Cryopreservation Semen (13347) [x] [] [x] [] Cryopreservation Storage: Oocytes (69925) [x] [] [x] [] Embryos (31833) [x] [] [x] [] Semen (94205) [x] [] [x] [] Donor Egg Services [x] [] [x] [] FERTILITY MEDICATIONS COVERED Y [x]/ N [] Preauth Req. Y[x] / N [] *Medications may or may not be part of fertility lifetime maximum. [facility]: [facility] Tel # DOES NOT HAVE NUMBER Management Pharmacy: Tel # Insurance Treatment Coverage: Copay: $0 Deductible Amount: $ 3,000 IND Accumulation: $ 2,293.35 IND Co-Insurance: 0 % Ufh-aq-uvphhc: 5,000 IND Accumulation: $ 1,089.65 IND Fertility Maximum Lifetime: N/A Accumulations: N/A [employer] Coverage/Fee: UP TO 24 MONTHS HSA or HRA: NO Notes/Exclusions: Insurance Diagnostic Testing Coverage: Copay: $0 Deductible Amount: $ 3,000 IND Accumulation: $ 2,293.35 IND Co-Insurance: 0 % Uhb-gb-ngdesn: 5,000 IND Accumulation: $ 1,089.65 IND documented in this encounter Plan of Treatment Upcoming Encounters Date Type Department Care Team (Late st Contact Info) Description 06/30/2025 1:00 PM EDT Office Visit Reproductive Endocrinology & Infertility [address] [place] [address] [address] [place] [address] Ester Fox MD [address] [place] [address] [place] [address] documented as of this encounter Visit Diagnoses Not on filedocumented in this encounter Care Teams Etiquette Teacher Relationship Specialty Start Date End Date Ketty Santamaria MD [address] [address] [place] [address] PCP - General Internal Medicine 05/21/25 documented as of this encounter
--- OUTSIDE RECORDS SUMMARY | 2025-06-29 18:40 | XMS_ITS | Clinical Summary ---
Author Organization [facility] Address [address] [place] [phone] Phone Care Team Providers Care Light Out Examiner Name Role Phone Ketty Santamaria MD Primary Care Provider [phone] Encounters Date Type Department Care Team Description 06/24/2025 Telephone Reproductive Endocrinology & Infertility [address] [phone] Domingo Chopra MD Pre-certification (GENERAL INFERTILITY ) from Last 3 Months Family History Medical History Relation Name Comments Arthritis Father Carl Gorman Degenerat fadia disc disease Prostate cancer Maternal Grandfather Liang Colon Cancer Maternal Grandmother Laura Colon Pancrea tic Cancer Lung cancer Paternal Grandmother Bing Gorman Lung cancer Paternal Uncle Shukri Gorman Miscarriages / Stillbirths Sister Le Zavala Relation Name Status Comments Father Carl Gorman Alive Maternal Grandfather Liang Colon Alive Maternal Grandmother Laura Colon Alive Paternal Grandmother Bing Gorman Alive Paternal Uncle Shukri Gorman Alive Sister Le Zavala Alive Social History Tobacco Use Types Packs/Day Years Used Date Smoking Tobacco: Never Smokeless Tobacco: Never Tobacco Cessation:Counseling Given: Not Answered Alcohol Use Standard Drinks/Week Comments Yes 3 (1 standard drink = 0.6 oz pur e alcohol) Comments Unknown Sex and Gender Information Value Date Recorded Sex Assigned at Not on file Legal Sex Female 3:45 PM EDT Gender Identity Not on file Sexual Orientation Not on file Plan of Treatment Upcoming Encounters Date Type Department Care Team ([facility] st Contact Info) Description 06/30/2025 1:00 PM EDT Office Visit Reproductive Endocrinology & Infertility [address] [phone] Domingo Chopra MD [address] [place] [address] Health Maintenance Due Date Last Done Comments HIV screening 01/20/2000 Hepatitis C screening 2005 Tetanus adult (Td q 10,TDAP once) 2007 Cervical cancer screening 01/20/2008 Influenza vaccine 04/23/2025 Covid-19 vaccine series (2023- season) 2025 RSV Immunization (1 - 1-dose 75+ series) 2062 Meningococcal B Vaccine Aged Out No l onger eligible based on patient's age to complete this topic Meningococcal Vaccine Aged Out No gloria matias eligible based on patient's age to complete this topic Pneumococcal Vaccine (2 - 49 years) Aged Out No longer eligible based on patient's age to complete this topic Insurance [facility] Care Teams Light Out Examiner Relationship Specialty Start Date End Date Ketty Santamaria MD [address] [place] [address] [place] Hairston [phone] PCP - General Internal Medicine 05/21/25
--- OUTSIDE RECORDS SUMMARY | 2025-06-29 18:40 | XMS_ITS | Encounter Summary ---
Author Organization [facility] Address [address] [place] [address] Phone Care Team Providers Care Warehouse Operations Manager Name Role Phone Mac Foote MD Primary Care Provider Encounter Details Date Type Department Care Team (Late st Contact Info) Description 03/10/2024 Procedure Pass [facility]'s Computer Network Engineer [place] [address] [place] [address] Social History Tobacco Use Types Packs/Day Years [...] on filedocumented in this encounter Care Teams Warehouse Operations Manager Relationship Specialty Start Date End Date Mac Foote MD [address] [place] [address] Drive [address] [place] [address] PCP - General Obstetrics and Gynecology 07/21/18 documented as of this encounter Additional Source Comments The information contained in this document represents components of the legal health record. It is not the complete legal health record.[facility]
--- OUTSIDE RECORDS SUMMARY | 2025-06-29 18:40 | XMS_ITS | Clinical Summary ---
Author Organization [facility] Address [address] [place] [address] Phone Care Team Providers Care Airveyor Operator Name Role Phone Chiqui Santamaria MD Primary Care Provider [phone] Allergies Active Allergy Reactions Criticality Noted Date [...] 2006 Cervical Cancer Screening: Pap Smear 01/20/2008 HPV Vaccines (1 - 3-dose SCDM series) 2014 Cholesterol Screening (Lipid Panel) 10/18/2023 HIV Screening 10/18/2023 Hepatitis C Screening 10/18/2023 Social Influencers of Health Screening 10/18/2023 Depression Screening 09/23/2024 COVID-19 Vaccine ( season) 2025 09/25/2021, 01/16/2021, 12/26/2020 Influenza Vaccine (#1) 2025 , 08/28/2023, 07/19/2022, Additional history exists DTaP,Tdap,and Td Vaccines (4 - Td or Tdap) 08/21/2033 08/21/2023, 07/19/2022, 06/06/2009 RSV Immunization Adult Patients (1 - 1-dose 75+ series) 2062 HIB Vaccines Aged Out No longer eligi [...] to complete this topic Insurance Care Teams Airveyor Operator Relationship Specialty Start Date End Date Chiqui Santamaria MD [address] [place] [address] PCP - General Internal Medicine 10/19/24
--- OUTSIDE RECORDS SUMMARY | 2025-06-29 18:41 | XMS_ITS | Patient Health Record ---
Author Organization [facility] Address [address] [place] [address] [address] [place] [address] Care Team Providers Care Behavioral Psychologist Name Role Phone Guillermina Almaraz MD Primary Care Provider Jesus Tuttle D.C. Unavailable Unavailable Reason For Referral No Information Plan Of Treatment No Information Insurance Providers Payer Name Payer Address Payer Phone Subscriber Number Group Number Insured Name Patient Relationship to Insured Coverage Start Date Coverage End Date [facility] [address] [place] [address] [id number] Carrie Vasquez Self - patient is the insured
== END 2025-06-29 16:00 | disposition home or self-care (01) ==
LOC: HO.HSMS 15:41
PROVIDERS: PCP Internal Medicine; Visit Provider Psychiatry & Neurology Neurology
DX: G43.719 Chronic migraine without aura, intractable, without status migrainosus (principal)
CPT/HCPCS: 64615

== ENCOUNTER → 2025-06-29 15:40 | Outpatient (BNVA) | payer OTHER, SELFPAY | PROVIDERS: PCP Internal Medicine; Visit Provider Psychiatry & Neurology Neurology | DX: G43.719 Chronic migraine without aura, intractable, without status migrainosus (principal) | CPT/HCPCS: 64615; 99211; J0585 ==